=== PATIENT | female | born 1970 | race Caucasian/White ===

== ENCOUNTER 2021-06-24 16:22 | Emergency (ER) | payer OTHER, SELFPAY ==
[2021-06-24 16:47] VITALS: BP 118/80; PULSE 86; RESP 16; TEMP 36.9; O2SAT 100; BMI 36.3
--- NOTE | 2021-06-24 17:05 | ED_ITS ---
HPI - Eye Problem <Zo Sosa MD - Last Filed: 06/24/21 18:26> General Chief complaint: Eye Problems Stated complaint: blurry right eye Time Seen by Provider: 06/24/21 17:05 History of Present Illness HPI Narrative: Otherwise healthy 51-year-old woman presents with complaints of acute right-sided visual acuity change at about 145 this afternoon. She notes significant decrease in vision and describes it as freckally and blurred. It is painless and not associated with headache. Visual acuity is decreased on the affected side: Right 20/70, left 20/25 [id number] Review of Systems <Zo Sosa MD - Last Filed: 06/24/21 18:26> Review of Systems Narrative: Pertinent positive and negative findings as per HPI Remainder of review of systems is otherwise unremarkable for Constitutional: Fevers, chills, weakness ENT: No sore throat, neck pain, ear pain CV: Chest pain, palpitations, Respiratory: Cough, wheeze, dyspnea GI: Nausea, vomiting, diarrhea, Exam <Zo Sosa MD - Last Filed: 06/24/21 18:26> Narrative Exam Narrative: General: Alert appropriate in no acute distress HEENT: Extra ocular eye movement intact. No scleral injection no corneal clouding no eyelid irritation. Funduscopic exam is attempted. Unable to focus on the fundus on either side. Left does appear appropriately pink, however right side funduscopic exam is significantly darker. Unable to focus on the retina on the side either Respiratory: Able to speak in full sentences, no obvious respiratory distress Skin: No obvious rashes, warm and dry Neurologic: Grossly intact no obvious asymmetries or abnormalities Psych: appropriate insight and affect, cooperative Initial Vital Signs Initial Vital Signs: Vital Signs Temperature 98.4 F 06/24/21 16:47 Pulse Rate 86 06/24/21 16:47 Respiratory Rate 16 06/24/21 16:47 Blood Pressure 118/80 06/24/21 16:47 Pulse Oximetry 100 06/24/21 16:47 <Chaparro Silva MD - Last Filed: 06/29/21 09:10> Initial Vital Signs Initial Vital Signs: Vital Signs Temperature 98.4 F 06/24/21 16:47 Pulse Rate 86 06/24/21 16:47 Respiratory Rate 16 09/08/21 16:47 Blood Pressure 118/80 09/08/21 16:47 Pulse Oximetry 100 06/24/21 16:47 Course <Zo Sosa MD - Last Filed: 06/24/21 18:26> Vital Signs Vital signs: Vital Signs - 8 hr 06/24/21 18:30 Pulse Rate 75 Blood Pressure 141/89 H Pulse Oximetry 100 <Chaparro Silva MD - Last Filed: 06/29/21 09:10> Vital Signs Vital signs: Vital Signs - 8 hr 06/24/21 18:30 Pulse Rate 75 Blood Pressure 141/89 H Pulse Oximetry 100 MDM - Eye Problem <Zo Sosa MD - Last Filed: 06/24/21 18:26> MDM Narrative Medical decision making narrative: 51-year-old woman with acute decreased vision with decreased blood flow to the right redness starting at 1:45 a.m. this afternoon. This does not appear to be a central artery occlusion nor amaurosis fugax. It does not appear to be infection related or corneal or anterior chamber abnormality. She is having no other symptoms or concern and no headache. Concern at this time is for central retinal vein occlusion with non severe visual loss ( 20/70) 5:20pm Page to ophthalmology for consultation Discharge Plan Departure Patient Disposition: Home Clinical Impression: Retinal vein occlusion Qualifiers: Central or branch retinal vein: central Retinal vein occlusion complication status: unspecified complication status Laterality: right Qualified Code(s): H34.8112 - Central retinal vein occlusion, right eye, stable Activity Restrictions/Additional Instructions: Based on your history and exam today, I believe you have a retinal vein occlusion. Most up to date recommendations for this are: Central retinal vein occlusion ? Patients with central retinal vein occlusion (CRVO) usually complain of the acute onset of painless blurred vision in one eye. The thrombosis results in venous stasis, leading to disc swelling, diffuse nerve fiber layer/preretinal hemorrhages, and cotton wool spots that create a dramatic appearance on funduscopic examination, often called the blood and thunder fundus. While vision loss may be severe, the onset is typically subacute in contrast to the sudden visual loss typical of CRAO. When venous stasis is severe, infarction may occur due to slowed retinal blood flow on the arterial side. In this setting, a relative afferent pupillary defect is often present. Patients suspected of having CRVO should be evaluated by an vegetable specker within 48 hours. We do not currently have an opthamologist environmental attorney. Please call your eye doctor, you can even call this evening to leave a message that you were in the ER and need to be seen tomorrow. I wish you the best
[2021-06-24 18:30] VITALS: BP 141/89; PULSE 75; O2SAT 100
== END 2021-06-24 18:31 | disposition home or self-care (01) ==
PROVIDERS: Emergency Provider Emergency Medicine
DX: H34.8112 Central retinal vein occlusion, right eye, stable (principal)
CPT/HCPCS: 99281

== ENCOUNTER 2022-02-14 12:08 | Emergency (ER) | payer OTHER, MEDICAID, SELFPAY ==
[2022-02-14 12:24] VITALS: BP 119/62; PULSE 80; RESP 18; TEMP 37.1; O2SAT 98
--- NOTE | 2022-02-14 12:26 | DI.RAD.S_ITS ---
PROCEDURE: XR LUMBAR SPINE 2-3V INDICATIONS: fall, direct blow TECHNIQUE: 3 views of the lumbar spine were acquired. COMPARISON: None. FINDINGS: Bones: 5 [id number] vertebrae are present. There is roughly 10 mm of retrolisthesis L2 on L3, and roughly 10 mm of retrolisthesis of L3 on L4. Multilevel disc space narrowing and endplate osteophyte formation. Facet hypertrophy throughout the mid and lower lumbar spine.. No vertebral body compression fractures. No suspicious bony lesions. Soft tissues: Overlying bowel gas pattern is normal. No suspicious soft tissue calcifications. IMPRESSION: 1. Multilevel degenerative disc and facet disease with associated spondylolisthesis. 2. No acute fracture. No osseous lesion. If symptoms and/or clinical suspicion for pathology persist, further assessment with repeat, or advanced imaging (e.g., CT, MRI, or bone scan) may be helpful for further assessment. Dictated by: Brittney Augustine M.D. on 02/14/2022 at 13:07 Approved by: Brittney Augustine M.D. on 02/14/2022 at 13:09
--- NOTE | 2022-02-14 13:50 | DI.RAD.S_ITS ---
PROCEDURE: XR PELVIS 1-2V INDICATIONS: fall on rt side, large hematoma TECHNIQUE: 1 view(s) of the pelvis acquired. COMPARISON: None. FINDINGS: Bones: No fractures or dislocations. No suspicious bony lesions. Soft tissues: Visualized bowel gas pattern is normal. No suspicious soft tissue calcifications. IMPRESSION: No acute fracture. No osseous lesion. If symptoms and/or clinical suspicion for pathology persist, further assessment with repeat, or advanced imaging (e.g., CT, MRI, or bone scan) may be helpful for further assessment. Dictated by: Brittney Augustine M.D. on 02/14/2022 at 14:17 Approved by: Brittney Augustine M.D. on 02/14/2022 at 14:17
[2022-02-14] MEDS: LIDOCAINE PATCH 1 EACH ADH..PATCH TOP (14:09)
[2022-02-14] MEDS: KETOROLAC 30 MG/ML VIAL 15 MG IM (14:09)
[2022-02-14 14:30] LABS: Hematocrit 36.1 % (36-46); Hemoglobin 12.4 g/dL (12.0-16.0)
--- NOTE | 2022-02-14 14:33 | ED_ITS ---
HPI - Back Pain/Injury <JANEE Kirkland - Last Filed: 02/14/22 14:42> General Chief Complaint: Back Pain/Injury Stated Complaint: fell down stairs lower back right leg Time Seen by Provider: 02/14/22 13:40 Source: patient History of Present Illness HPI Narrative: This is a 51-year-old female presents to the emergency department after she accidentally stepped on her cat while going down the stairs last night and fell down on her right hip down the stairs. She denies hitting her head, states she has a very large hematoma and bruise to her right buttock, states it is approximately 10 in x 8 in, very tender, initially it was swollen like a baseball and then has dissipated since. She denies being on any anticoagulants, she denies any lightheadedness, dizziness, weakness, orthostatic hypotension. She denies any other complaint other than low back pain from falling down. She denies any weakness, sensation changes in her lower extremities, headache, or open wound. She states she has full range of motion of her leg although walking is painful and standing from sitting is the most painful. Related Data Previous Rx's Medication Instructions Recorded diclofenac sodium 1 % topical gel 2 g TOPICAL QID PRN #100 g 02/14/22 (Voltaren Arthritis Pain) hydrocodone 5 mg-acetaminophen 325 1 tab PO BID PRN #14 tab 02/14/22 mg tablet lidocaine 5 % topical patch 1 patch TOPICAL DAILY PRN #15 ea 02/14/22 (Lidoderm) methocarbamol 500 mg tablet 500 mg PO Q8H PRN #14 tab 02/14/22 naproxen 250 mg tablet 250 mg PO BID PRN #30 tab 02/14/22 Allergies Allergy/AdvReac Type Severity Reaction Status Date / Time No Known Drug Allergies Allergy Unverified 12/29/21 13:14 Review of Systems <JANEE Kirkland - Last Filed: 02/14/22 14:42> Review of Systems Narrative: General: denies fever, chills Head/Neck: denies headache, neck pain Eyes: denies visual changes, eye pain Cardio: denies chest pain, palpitations Respiratory: denies shortness of breath, cough GI: denies abdominal pain, nausea, vomiting, or diarrhea : denies dysuria, hematuria MSK: denies joint pain, muscle weakness, endorses large hematoma on right buttock, denies any pain, or pain in right hip with movement. Denies any sensation changes Skin: denies rash, itching Neuro: denies numbness, tingling Patient History <JANEE Kirkland - Last Filed: 02/14/22 14:42> Social History Smoking Status: Never smoker Smoking Status: Never smoker Substance Use Type: does not use Exam <JANEE Kirkland - Last Filed: 02/14/22 14:42> Narrative Exam Narrative: Independently reviewed vitals signs and nursing notes. General: cooperative, comfortable, in no acute distress, well developed and well groomed Head: atraumatic, symmetrical facial expressions Neck: supple, atraumatic, without lymphadenopathy. Eyes: pupils equal round and reactive, EOMI, conjunctiva normal Nose: nares patent, no rhinorrhea Mouth/Throat: uvula midline, moist mucus membranes Cardiovascular: regular rate and rhythm, no peripheral edema, warm extremities Respiratory: normal effort, able to speak in complete sentences, no audible wheezing, stridor, or rales. No retractions or tachypnea. GI: abdomen soft, nontender to palpation, nondistended, no masses, no exquisite tenderness with exam, without guarding or rebound. MSK: moves all extremities, ambulatory w/limp on right leg due to pain from her right buttock hematoma, right leg is neurovascularly intact, no weakness, no open wound, large hematoma approximately 10 in by 8 in on her right buttock, slightly edematous, firm, purple in color, tender to palpation. Skin: brisk capillary refill, no rash, no erythema Neuro: normal speech and cognition, A&O x3, normal tone Psych: mental status is grossly normal, congruent mood, normal affect, pleasant and cooperative Initial Vital Signs Initial Vital Signs: Vital Signs Temperature 98.7 F 02/14/22 12:24 Pulse Rate 80 02/14/22 12:24 Respiratory Rate 18 02/14/22 12:24 Blood Pressure 119/62 02/14/22 12:24 Pulse Oximetry 98 02/14/22 12:24 <Eugenio Forte DO - Last Filed: 02/14/22 15:45> Initial Vital Signs Initial Vital Signs: Vital Signs Temperature 98.7 F 02/14/22 12:24 Pulse Rate 80 02/14/22 12:24 Respiratory Rate 18 02/14/22 12:24 Blood Pressure 119/62 02/14/22 12:24 Pulse Oximetry 98 02/14/22 12:24 Course <JANEE Kirkland - Last Filed: 02/14/22 14:42> Orders Ordered: ED Orders 02/14/22 12:26 XR lumbar spine 2-3V Stat 02/14/22 13:50 XR pelvis 1-2V Stat 02/14/22 14:19 Hemoglobin and Hematocrit Stat Discontinued Medications Ketorolac Tromethamine (Ketorolac 30 Mg/Ml Vial) 15 mg IM NOW ONE Stop: 02/14/22 13:51 Last Admin: 02/14/22 14:09 Dose: 15 mg Documented by: YUDI Lidocaine (Lidocaine Patch 1 Each Adh..Patch) 1 each TOP NOW ONE Stop: 02/14/22 13:51 Last Admin: 02/14/22 14:09 Dose: 1 each Documented by: YUDI Vital Signs Vital signs: Vital Signs - 8 hr 02/14/22 12:24 02/14/22 14:46 Temperature 98.7 F Pulse Rate 80 67 Respiratory Rate 18 18 Blood Pressure 119/62 120/72 Pulse Oximetry 98 97 <Eugenio Forte DO - Last Filed: 02/14/22 15:45> Orders Ordered: ED Orders 02/14/22 12:26 XR lumbar spine 2-3V Stat 02/14/22 13:50 XR pelvis 1-2V Stat 02/14/22 14:19 Hemoglobin and Hematocrit Stat Discontinued Medications Ketorolac Tromethamine (Ketorolac 30 Mg/Ml Vial) 15 mg IM NOW ONE Stop: 02/14/22 13:51 Last Admin: 02/14/22 14:09 Dose: 15 mg Documented by: YUDI Lidocaine (Lidocaine Patch 1 Each Adh..Patch) 1 each TOP NOW ONE Stop: 02/14/22 13:51 Last Admin: 02/14/22 14:09 Dose: 1 each Documented by: YUDI Vital Signs Vital signs: Vital Signs - 8 hr 02/14/22 12:24 02/14/22 14:46 Temperature 98.7 F Pulse Rate 80 67 Respiratory Rate 18 18 Blood Pressure 119/62 120/72 Pulse Oximetry 98 97 MDM - Back Pain/Injury <Shanika Maurer Virydamaso, [facility] - Last Filed: 02/14/22 14:42> Lab Data Result diagrams: 02/14/22 14:19 Labs: Lab Results 02/14/22 Range/Units 14:19 Hgb 12.4 (12.0-16.0) g/dL Hct 36.1 (36-46) % Imaging Data pelvis xr: Radiologist's Impression: PROCEDURE:? XR PELVIS 1-2V ? INDICATIONS:? fall on rt side, large hematoma ? TECHNIQUE:? 1 view(s) of the pelvis acquired.? ? COMPARISON:? None. ? FINDINGS:? ? Bones:? No fractures or dislocations.? No suspicious bony lesions.? ? Soft tissues:? Visualized bowel gas pattern is normal.? No suspicious soft tissue calcifications.? ? IMPRESSION:? No acute fracture. No osseous lesion. If symptoms and/or clinical suspicion for pathology persist, further assessment with repeat, or advanced imaging (e.g., CT, MRI, or bone scan) may be helpful for further assessment. ? ? Dictated by: Brittney Augustine M.D. on 02/14/2022 at 14:17 ? ? Approved by: Brittney Augustine M.D. on 02/14/2022 at 14:17 ? lumbar xr: Radiologist's Impression: PROCEDURE:? XR LUMBAR SPINE 2-3V ? INDICATIONS:? fall, direct blow ? TECHNIQUE:? 3 views of the lumbar spine were acquired.? ? COMPARISON:? None. ? FINDINGS:? ? Bones:? 5 [id number] vertebrae are present.? There is roughly 10 mm of retrolisthesis L2 on L3, and roughly 10 mm of retrolisthesis of L3 on L4.? Multilevel disc space narrowing and endplate osteophyte formation.? Facet hypertrophy throughout the mid and lower lumbar spine..? No vertebral body compression fractures.? No suspicious bony lesions.? ? Soft tissues:? Overlying bowel gas pattern is normal.? No suspicious soft tissue calcifications.? ? ? IMPRESSION:? 1. Multilevel degenerative disc and facet disease with associated spondylolisthesis. 2. No acute fracture. No osseous lesion. If symptoms and/or clinical suspicion for pathology persist, further assessment with repeat, or advanced imaging (e.g., CT, MRI, or bone scan) may be helpful for further assessment. ? ? Dictated by: Brittney Augustine M.D. on 02/14/2022 at 13:07 ? ? Approved by: Brittney Augustine M.D. on 02/14/2022 at 13:09 ? MDM Narrative Medical decision making narrative: This is a 51-year-old female presents emergency department after a fall down the stairs last night after she stepped on her cat, she has pain to her right buttock and low back pain. She has a large hematoma approximately 10 in x 8 on her right buttock. Pelvis x-ray is negative for acute fracture or osseous lesion, no suspicious soft tissue was notable, lumbar x-ray shows multilevel degenerative disc and facet disease with associated spondylolisthesis, no acute fracture or osseous lesion, no vertebral body compression fractures. H&H was drawn to evaluate for blood loss 36.1. Patient denies any lightheadedness, dizziness, orthostatic hypotension, weakness, head injury, or any other wound. She is encouraged to follow-up with her primary care provider for any outpatient imaging and to see how this is healing. Concern for large hematoma and if this does not absorb in need for potential surgical debridement. Encouraged ice and heat, rest, light activity and movement, lidocaine patches, Voltaren gel, she is given hydrocodone as needed for pain, she is given Toradol in the emergency department today, encouraged to use naproxen starting tomorrow, methocarbamol, lidocaine patches, Voltaren gel and Lortab as needed for pain. Patient is appropriate and amenable to discharge home. Vital signs are stable on repeat examination is unremarkable. Patient has been informed of results. Patient has been given strict return to ER precautions for any new or worsening symptoms. Patient understands to follow up closely with outpatient providers as ins tructed. Patient understands plan and agrees to discharge home. All questions and concerns answered at this time. <Eugenio Forte, DO - Last Filed: 02/14/22 15:45> Lab Data Labs: Lab Results 02/14/22 Range/Units 14:19 Hgb 12.4 (12.0-16.0) g/dL Hct 36.1 (36-46) % Discharge Plan Departure Patient Disposition: Home Clinical Impression: Hematoma and contusion Fall Qualifiers: Encounter type: initial encounter Qualified Code(s): W19.XXXA - Unspecified fall, initial encounter Instructions: Contusion, DI for Hematoma (Bruise) Activity Restrictions/Additional Instructions: *You have been diagnosed with a very large hematoma/contusion. Please take the next few days off of work to help yourself rest. Alternate ice and heat, use topical lidocaine patches or Voltaren gel, naproxen every 12 hours starting tomorrow, Tylenol, and hydrocodone as needed for pain. You may take a muscle relaxer if you are having spasms. Please follow-up with your primary care provider for another evaluation of this wound. If you are feeling faint, lightheaded, worsening pain worsening swelling, please return to the emergency department for another evaluation. There are no life-threatening causes to your injury that we found on x-ray or your lab work today. Light activity will help this improve and very light massage. This will be painful for quite a few days, it may take 2-4 weeks to fully heal. Thank you for trusting us with your care, if you have any worsening of her symptoms, spike a fever, or any other concerns, please return to the emergency department. *What to do: *Please continue to take your regular medications as directed. [ x] New medication prescriptions sent to your pharmacy: [ [facility]] [ ] New medication written as a paper prescription [ ] No new medications given *Please follow up with your primary care provider in 2-3 days, call for an appointment. Let them know you were seen in the Emergency Department and that we asked that you be seen for follow-up. We will electronically transmit a record of today's note if your PCP is in our system *If you do not have a primary care provider please contact [phone] to establish care with one of the [facility] primary care providers. *Return to Emergency Department if you should have any new, worsening or concerning symptoms, such as [fever greater than 101F, chills, worsening pain, persistent vomiting or other bothersome symptoms] Prescriptions: New hydrocodone-acetaminophen 5-325 mg tablet 1 tab PO BID PRN (Reason: pain) Qty: 14 0RF methocarbamol 500 mg tablet 500 mg PO Q8H PRN (Reason: muscle spasm) Qty: 14 0RF lidocaine [Lidoderm] 5 % adhesive patch,medicated 1 patch topical DAILY PRN (Reason: pain) Qty: 15 0RF Rx Instructions: leave on most painful area for up to 12 hrs naproxen 250 mg tablet 250 mg PO BID PRN (Reason: pain) Qty: 30 0RF Rx Instructions: with food and water diclofenac sodium [Voltaren Arthritis Pain] 1 % gel 2 g topical QID PRN (Reason: pain/swelling) Qty: 100 0RF Rx Instructions: apply to single elbow, wrist or hand; for hand includes palm/fingers/back of hand Referrals: Izzy Jansen ND [Primary Care Provider] - Stand Alone Forms: Work Release Note <Eugenio Forte DO - Last Filed: 02/14/22 15:45> Cosign ED Attending Cosignature Attestation: Dr Forte Co-Sign Statement: I was available for consultation during this patient's emergency department visit. This chart is signed by myself for administrative purposes only. I did not have direct contact with this patient during this visit. They were seen independently by the APC.
[2022-02-14 14:46] VITALS: BP 120/72; PULSE 67; RESP 18; O2SAT 97
== END 2022-02-14 14:46 | disposition home or self-care (01) ==
PROVIDERS: Emergency Provider Nurse Practitioner Critical Care Medicine; PCP Naturopath
DX: S30.0XXA Contusion of lower back and pelvis, initial encounter (principal); W10.9XXA Fall (on) (from) unspecified stairs and steps, initial encounter
CPT/HCPCS: 36415; 72100; 72170; 85014; 85018; 96372; 99283; 99284; J1885

== ENCOUNTER → 2022-08-16 11:54 | Outpatient (CLI) | payer OTHER, MEDICAID, SELFPAY ==
--- NOTE | 2022-08-16 | DI.RAD.S_ITS ---
PROCEDURE: FL SHOULDER INJECTION MR/CT LT INDICATIONS: Pain in left shoulder COMPARISON: None. TECHNIQUE: The indications, alternatives, benefits, risks, and complications of the procedure were explained to the patient. Written informed consent was obtained and placed in the chart. The shoulder was examined fluoroscopically and a site for needle placement chosen for entry into the glenohumeral joint from an anterior approach. The skin was prepped and draped in a sterile fashion, and 1% lidocaine infiltrated from skin down to joint capsule. A spinal needle was inserted into the glenohumeral joint, and a small amount of iodinated contrast media injected to confirm intra-articular placement of the needle tip. This was followed by approximately 12 mL dilute solution of a gadolinium containing MR contrast agent. The needle was removed and a dressing was applied. The patient was given postprocedural instructions and sent to the MR suite for MR imaging. FINDINGS: A single fluoroscopic spot image demonstrates intra-articular location of injected iodinated contrast. IMPRESSION: Successful fluoroscopically guided administration of dilute Gadolinium solution into the shoulder joint for MR arthrogram. Dictated by: Morris Ayoub M.D. on 08/16/2022 at 14:26 Approved by: Morris Ayoub M.D. on 08/16/2022 at 14:26
--- NOTE | 2022-08-16 | DI.MRI.S_ITS ---
PROCEDURE: MR SHOULDER LT W CON INDICATIONS: Pain in left shoulder TECHNIQUE: After the administration of 12 mL of dilute intra-articular Gadolinium contrast, oblique coronal T1 and T2 spin echo with fat saturation, oblique sagittal T1 spin echo with and without fat saturation, oblique sagittal T2 fast spin echo with fat saturation, axial T1 spin echo with fat saturation through the shoulder. COMPARISON: None. FINDINGS: Image quality: Slightly motion degraded Rotator cuff: No significant atrophy Teres minor: Intact Supraspinatus: Interstitial partial thickness tear and tendinosis of the mid and proximal tendon. Infraspinatus: Tendinosis and partial-thickness articular sided tear. Subscapularis: Tendinosis. Bones and bursae: GH joint: Distended with contrast. The cartilage is difficult to identify in the presence of contrast. There is probably mild degenerative changes. Some small loose bodies are seen adjacent to the long head biceps tendon, as well as the posterior aspect of the axillary pouch. AC joint: Mild degenerative changes Humeral head: Intact Scapula and acromion: Normal morphology Bursa: There is mild bursitis. No extension of intra-articular contrast. Capsule: Labrum: There is a superior labral tear, also involving the anterior superior position Long head biceps tendon: The mid tendon is situated in the bicipital groove. Nearly completely torn biceps tendon in the intra-articular aspect, with a split tear near the glenoid aspect. IGHL: Intact Rotator interval: Preserved fat signal Soft tissues: No axillary adenopathy. Lungs are not well seen. IMPRESSION: Superior labral tear also involving the anterior superior aspect. Split tear the long head biceps tendon at the glenoid attachment. High-grade tear of the intra-articular long head biceps tendon. Small loose bodies are seen in the joint, adjacent to the long head biceps tendon and at the posterior aspect of the axillary pouch Partial-thickness rotator cuff tearing and tendinosis as above. Dictated by: Morris Ayoub M.D. on 08/16/2022 at 15:57 Approved by: Morris Ayoub M.D. on 08/16/2022 at 16:09
== END ==
PROVIDERS: PCP Naturopath; Referring Provider Naturopath; Visit Provider Naturopath
DX: M75.112 Incomplete rotator cuff tear or rupture of left shoulder, not specified as traumatic (principal); S43.492A Other sprain of left shoulder joint, initial encounter; S46.112A Strain of muscle, fascia and tendon of long head of biceps, left arm, initial encounter; M25.512 Pain in left shoulder
CPT/HCPCS: 23350; 73222

== ENCOUNTER 2022-10-13 14:11 | Emergency (ER) | payer OTHER, MEDICAID, SELFPAY ==
[2022-10-13 14:16] VITALS: BP 136/82; PULSE 73; RESP 20; TEMP 36.6; O2SAT 100; BMI 37.0
[2022-10-13 15:11] LABS: Influenza A - CEPHEID Flu A NEGATIVE (NEGATIVE); Influenza B - CEPHEID Flu B NEGATIVE (NEGATIVE); Respiratory Syncytial Virus Negative (Negative)
[2022-10-13 15:14] LABS: COVID-19 CEPHEID 4-PLEX PCR Negative (Negative)
--- NOTE | 2022-10-13 17:08 | ED.URI ---
HPI - URI/Sore Throat <JANEE Kirkland - Last Filed: 10/13/22 17:18> General Chief Complaint: Upper Respiratory Symptoms Stated Complaint: Cold for 10 days Time Seen by Provider: 10/13/22 16:50 Source: patient Mode of arrival: Ambulatory History of Present Illness HPI Narrative: This is a 52-year-old female with history of asthma presents to the emergency department with 10 days of cough, congestion, rhinorrhea and states that her cough is keeping her up late at night. She denies fever and chills, denies vomiting but states that she is had frequent coughing fits. She uses albuterol nebulizers in her nebulizer machine for her shortness of breath and states that it has been helpful but she is up late at night due to coughing. She is taking Sudafed with Mucinex, complains of history of asthma and COPD, having a raspy voice, and frequent coughing fits. She denies chest pain, difficulty breathing or weakness. Denies chest pain, nausea vomiting. Related Data Previous Rx's Medication Instructions Recorded diclofenac sodium 1 % topical gel 2 g topical QID PRN pain/swelling 02/14/22 (Voltaren Arthritis Pain) #100 grams lidocaine 5 % topical patch 1 patch topical DAILY PRN pain #15 02/14/22 (Lidoderm) ea methocarbamol 500 mg tablet 500 mg PO Q8H PRN muscle spasm #14 02/14/22 tabs naproxen 250 mg tablet 250 mg PO BID PRN pain #30 tabs 02/14/22 albuterol sulfate 2.5 mg/3 mL 2.5 mg (3 mL) inhalation Q3H PRN 10/13/22 (0.083 %) solution for nebulization shortness of breath or wheezing #90 mL benzonatate 200 mg capsule 200 mg PO TID PRN cough #14 caps 10/13/22 inhalational spacing device (Space #1 ea 10/13/22 Chamber) methylprednisolone 4 mg tablets in See Rx Instructions PO .COMPLEX 10/13/22 a dose pack (Medrol (Miguel)) #21 ea Allergies Allergy/AdvReac Type Severity Reaction Status Date / Time No Known Drug Allergies Allergy Unverified 07/29/22 10:52 Review of Systems <JANEE Kirkland - Last Filed: 10/13/22 17:18> Review of Systems ROS Unobtainable: All systems reviewed & are unremarkable except as noted in HPI and below Patient History <JANEE Kirkland - Last Filed: 10/13/22 17:18> Social History Smoking Status: Never smoker Smoking Status: Never smoker alcohol intake frequency: holidays/special occasions only Substance Use Type: does not use Exam <JANEE Kirkland - Last Filed: 10/13/22 17:18> Narrative Exam Narrative: Reviewed vitals signs and nursing notes. General: cooperative, comfortable, in no acute distress, well groomed HEENT: symmetrical facial expressions, moist mucous membranes Cardiovascular: regular rate and rhythm, no peripheral edema, warm extremities Respiratory: normal effort, frequent cough, mild expiratory wheezes, breath sounds auscultated in all lobes without diminished breath sounds, able to speak in complete sentences, without stridor, retractions or tachypnea. Without hypoxia or increased work of breathing Skin: brisk capillary refill, without pallor or erythema Neuro: normal speech and cognition, A&O x3, ambulatory, clear speech Psych: mental status is grossly normal, congruent mood, normal affect, pleasant and cooperative Initial Vital Signs Initial Vital Signs: Vital Signs Temperature 97.9 F 10/13/22 14:16 Pulse Rate 73 10/13/22 14:16 Respiratory Rate 20 10/13/22 14:16 Blood Pressure 136/82 10/13/22 14:16 Pulse Oximetry 100 10/13/22 14:16 Oxygen Delivery Method 10/13/22 14:16 <Carlotta Howell DO - Last Filed: 10/16/22 07:52> Initial Vital Signs Initial Vital Signs: Vital Signs Temperature 97.9 F 10/13/22 14:16 Pulse Rate 73 10/13/22 14:16 Respiratory Rate 20 10/13/22 14:16 Blood Pressure 136/82 10/13/22 14:16 Pulse Oximetry 100 10/13/22 14:16 Oxygen Delivery Method 10/13/22 14:16 Course <JANEE Kirkland - Last Filed: 10/13/22 17:18> Orders Ordered: Discontinued Medications Benzonatate (Benzonatate 100 Mg Capsule) 100 mg PO NOW ONE Stop: 10/13/22 17:03 Last Admin: 10/13/22 18:06 Dose: 100 mg Documented By: JUDY Dexamethasone (Dexamethasone 10 Mg/Ml Vial) 10 mg PO NOW ONE Stop: 10/13/22 17:03 Last Admin: 10/13/22 18:06 Dose: 10 mg Documented By: JUDY Vital Signs Vital signs: Vital Signs - 8 hr 10/13/22 14:16 Temperature 97.9 F Pulse Rate 73 Respiratory Rate 20 Blood Pressure 136/82 Pulse Oximetry 100 Oxygen Delivery Method Room Air <Carlotta Howell DO - Last Filed: 10/16/22 07:52> Orders Ordered: Discontinued Medications Benzonatate (Benzonatate 100 Mg Capsule) 100 mg PO NOW ONE Stop: 10/13/22 17:03 Last Admin: 10/13/22 18:06 Dose: 100 mg Documented By: JUDY Dexamethasone (Dexamethasone 10 Mg/Ml Vial) 10 mg PO NOW ONE Stop: 10/13/22 17:03 Last Admin: 10/13/22 18:06 Dose: 10 mg Documented By: JUDY Vital Signs Vital signs: Vital Signs - 8 hr 10/13/22 14:16 Temperature 97.9 F Pulse Rate 73 Respiratory Rate 20 Blood Pressure 136/82 Pulse Oximetry 100 Oxygen Delivery Method Room Air MDM - URI/Sore Throat <JANEE iKrkland - Last Filed: 10/13/22 17:18> Lab Data Labs: Lab Results 10/13/22 Range/Units 14:20 SARS-CoV-2 (PCR) Negative (Negative) Influenza A (RT-PCR) Flu a negative (NEGATIVE) Influenza B (RT-PCR) Flu b negative (NEGATIVE) RSV (PCR) Negative (Negative) MDM Narrative Medical decision making narrative: This patient presents with symptoms suspicious for likely viral upper respiratory infection for the last 10 days with frequent cough, productive cough, denies fever and chills.. Based on history and physical, doubt sinusitis, pneumonia, bacterial tracheitis, or systemic infection.. Respiratory PCR: Negative for COVID, influenza a, B, and RSV. Patient has history of COPD, asthma, uses albuterol nebulizer at home, today she was given Decadron in the emergency department for mild expiratory wheezes on auscultation. She was given Medrol Dosepak, refill of albuterol neb goals, benzonatate for cough. Recommend she follow-up with her PCP or return to emergency department for worsening symptoms and if she develops a fever. She is without hypoxia, increased work of breathing, or abnormal vital signs today. Do not suspect underlying cardiopulmonary process. I considered other dangerous causes of this patient?s symptoms to include ACS, CHF or exacerbation, pneumonia, pneumothorax, malignancy and determined these were unlikely. Patient is nontoxic appearing and not in need of emergent medical intervention. Patient told to self isolate at home until symptoms subside/improve. Other possible diagnosis' considered: viral URI, influenza, COVID, pharyngitis, GERD, bronchitis, asthma, pertussis, medication side effect, postnasal discharge, sinusitis, appendicitis, dehydration. Recommended rest, hydration, tylenol and NSAIDS for fever and/or pain. Return to ED for worsening symptoms such as SOB, chest pain, inability to take adequate oral fluids, fever, or productive cough. <Carlotta Howell DO - Last Filed: 10/16/22 07:52> Lab Data Labs: Lab Results 10/13/22 Range/Units 14:20 SARS-CoV-2 (PCR) Negative (Negative) Influenza A (RT-PCR) Flu a negative (NEGATIVE) Influenza B (RT-PCR) Flu b negative (NEGATIVE) RSV (PCR) Negative (Negative) Discharge Plan Departure Patient Disposition: Home Clinical Impression: Upper respiratory infection Qualifiers: URI type: unspecified URI Qualified Code(s): J06.9 - Acute upper respiratory infection, unspecified Instructions: Acute Bronchitis, DI for Viral Upper Respiratory Infection -- Adult Activity Restrictions/Additional Instructions: *You have been diagnosed with an upper respiratory infection which did not test positive for COVID, influenza, or RSV. It can be many other different viruses and the viral part maybe over already but you have symptoms of bronchitis today. Please continue using the Sudafed with mucus coverage, use your albuterol nebulizers as needed for shortness of breath, and take the steroid as prescribed. You may take Zyrtec or Mucinex as needed for right runny nose and congestion. I hope you feel better soon, rest, stay hydrated, follow up with your primary care provider and return for any new or worsening symptoms, or if you develop a fever. *What to do: *Please continue to take your regular medications as directed. [x ] New medication prescriptions sent to your pharmacy: [[facility] ] [ ] New medication written as a paper prescription [ ] No new medications given *Please follow up with your primary care provider in 2-3 days, call for an appointment. Let them know you were seen in the Emergency Department and that we asked that you be seen for follow-up. We will electronically transmit a record of today's note if your PCP is in our system *If you do not have a primary care provider please contact [phone] to establish care with one of the [facility] primary care providers. *Return to Emergency Department if you should have any new, worsening, or concerning symptoms, such as [fever greater than 101F, chills, worsening pain, persistent vomiting or other bothersome symptoms]. Prescriptions: New benzonatate 200 mg capsule 200 mg PO TID PRN (Reason: cough) Qty: 14 0RF methylprednisolone [Medrol (Miguel)] 4 mg tablets,dose pack See Rx Instructions .ROUTE .COMPLEX Qty: 21 0RF Rx Instructions: orally per package directions albuterol sulfate 2.5 mg /3 mL (0.083 %) solution for nebulization 2.5 mg inhalation Q3H PRN (Reason: shortness of breath or wheezing) Qty: 90 0RF (DME) Space Chamber Spacer See Rx Instructions .Route Qty: 1 0RF Rx Instructions: As directed No Action methocarbamol 500 mg tablet 500 mg PO Q8H PRN (Reason: muscle spasm) Qty: 14 0RF lidocaine [Lidoderm] 5 % adhesive patch,medicated 1 patch topical DAILY PRN (Reason: pain) Qty: 15 0RF Rx Instructions: leave on most painful area for up to 12 hrs naproxen 250 mg tablet 250 mg PO BID PRN (Reason: pain) Qty: 30 0RF Rx Instructions: with food and water diclofenac sodium [Voltaren Arthritis Pain] 1 % gel 2 g topical QID PRN (Reason: pain/swelling) Qty: 100 0RF Rx Instructions: apply to single elbow, wrist or hand; for hand includes palm/fingers/back of hand Referrals: Izzy Jansen ND [Primary Care Provider] - Stand Alone Forms: Patient Portal/API <Carlotta Howell DO - Last Filed: 10/16/22 07:52> Cosign ED Attending Cosignature Attestation: I was immediately available in the department for consultation. Documentation has been reviewed. I agree with assessment and plan.
[2022-10-13] MEDS: BENZONATATE 100 MG CAPSULE PO (18:06)
[2022-10-13] MEDS: DEXAMETHASONE 10 MG/ML VIAL PO (18:06)
[2022-10-13 18:18] VITALS: BP 127/84; PULSE 65; O2SAT 100
== END 2022-10-13 18:27 | disposition home or self-care (01) ==
PROVIDERS: Emergency Medicine; Emergency Provider Nurse Practitioner Critical Care Medicine; PCP Naturopath
DX: J06.9 Acute upper respiratory infection, unspecified (principal); Z20.822 Contact with and (suspected) exposure to COVID-19
CPT/HCPCS: 0241U; 99283; J1100

== ENCOUNTER 2022-10-31 07:35 | Emergency (ER) | payer OTHER, MEDICAID, SELFPAY ==
--- NOTE | 2022-10-31 07:43 | ED.GENADULT ---
HPI - General Adult General Chief complaint: Upper Respiratory Symptoms Stated complaint: chills, sore throat, headache x1 mo Time Seen by Provider: 10/31/22 07:40 History of Present Illness HPI narrative: 52F nonsmoker without chronic medical history presents with a chief complaint various upper respiratory symptoms for about the past 1-2 months. She is had a vague headache in the absence of trauma, neck pain, use of blood thinners. She has no obvious provocation or palliation of her head pain. She is had nasal congestion, runny nose and sore throat. Additionally she complains of a dry and hacking cough that occasionally produces yellowish sputum. She states her symptoms seem to be worse in the evening and throughout the night and improve over the course of the day. She denies nausea, vomiting or diarrhea. She had been taking various [id number] cough and cold medications and recently saw her primary care provider who put her on a Z-Miguel. She has no notable improvement. She denies any shortness of breath, recent travel or injury Related Data Previous Rx's Medication Instructions Recorded diclofenac sodium 1 % topical gel 2 g topical QID PRN pain/swelling 02/14/22 (Voltaren Arthritis Pain) #100 grams lidocaine 5 % topical patch 1 patch topical DAILY PRN pain #15 02/14/22 (Lidoderm) ea methocarbamol 500 mg tablet 500 mg PO Q8H PRN muscle spasm #14 02/14/22 tabs naproxen 250 mg tablet 250 mg PO BID PRN pain #30 tabs 02/14/22 albuterol sulfate 2.5 mg/3 mL 2.5 mg (3 mL) inhalation Q3H PRN 10/13/22 (0.083 %) solution for nebulization shortness of breath or wheezing #90 mL benzonatate 200 mg capsule 200 mg PO TID PRN cough #14 caps 10/13/22 inhalational spacing device (Space #1 ea 10/13/22 Chamber) methylprednisolone 4 mg tablets in See Rx Instructions PO .COMPLEX 10/13/22 a dose pack (Medrol (Miguel)) #21 ea Allergies Allergy/AdvReac Type Severity Reaction Status Date / Time No Known Drug Allergies Allergy Unverified 07/29/22 10:52 Review of Systems Review of Systems Narrative: GENERAL: See HPI HEENT: See HPI RESPIRATORY: See HPI CARDIOVASCULAR: Denies chest pain, palpitations, orthopnea, edema, GASTROINTESTINAL: See HPI : Denies dysuria, frequency, incontinence, hematuria, urinary retention. MUSCULOSKELETAL: denies weakness, joint pain, or bony pain SKIN: Denies rash, skin lesions, or other NEUROLOGIC: Denies weakness, headache, numbness, change in speech, confusion, seizures, incoordination. PSYCHIATRIC: No concerning psychosocial issues. 12 point review of systems is negative except for those stated above Patient History Social History Smoking Status: Never smoker Smoking Status: Never smoker alcohol intake frequency: holidays/special occasions only Substance Use Type: does not use Exam Narrative Exam Narrative: GENERAL: [52] year old patient appears stated age. Well-developed patient, in mild distress. HEAD: Atraumatic. Normocephalic. EYES: Pupils equal round and reactive. Extraocular motions intact. No scleral icterus. No injection or drainage. ENT: Clear nasal drainage, no purulence. Throat without erythema, tonsillar hypertrophy or exudate, clear posterior drainage. Airway patent. NECK: Trachea midline. Non tender CARDIOVASCULAR: Regular rate and rhythm without murmurs, gallops, or rubs. RESPIRATORY: Clear to auscultation. Breath sounds equal bilaterally. No wheezes, rales, or rhonchi. GASTROINTESTINAL: Abdomen soft, non-tender, nondistended. EXTREMITIES: No edema or joint tenderness. BACK: Nontender without deformity or crepitance. No flank tenderness. NEURO: AOx3. SKIN: No rash or erythema of visible areas Initial Vital Signs Initial Vital Signs: Vital Signs Temperature 97.9 F 10/31/22 07:52 Pulse Rate 95 H 10/31/22 07:52 Respiratory Rate 16 10/31/22 07:52 Blood Pressure 135/85 10/31/22 07:52 Pulse Oximetry 99 10/31/22 07:52 Oxygen Delivery Method 10/31/22 07:52 Course Orders Ordered: ED Orders 10/31/22 07:50 Covid-19 + FLU A/B + RSV - PCR Stat Throat Culture Stat 10/31/22 07:55 XR chest 2V Stat Vital Signs Vital signs: Vital Signs - 8 hr 10/31/22 07:52 Temperature 97.9 F Pulse Rate 95 H Respiratory Rate 16 Blood Pressure 135/85 Pulse Oximetry 99 Oxygen Delivery Method Room Air Medical Decision Making Lab Data Labs: Lab Results 10/31/22 Range/Units 07:50 SARS-CoV-2 (PCR) Positive H (Negative) Influenza A (RT-PCR) Flu a negative (NEGATIVE) Influenza B (RT-PCR) Flu b negative (NEGATIVE) RSV (PCR) Negative (Negative) Point of Care Testing Rapid Strep A Negative Point of care testing: Point of Care Testing Rapid Strep A Negative Imaging Data Chest x-ray: Radiologist's Impression: Close Chest X-Ray (Signed) Chadwick Guadarrama - 10/31/22 Shoulder MRI (Signed) Morris Ayoub - 08/16/22 Injection for MRI Arthrogram (Signed) Morris Ayoub - 08/16/22 Pelvis X-Ray (Signed) Brittney Augustine - 02/14/22 Lumbar Spine X-Ray (Signed) Brittney Augustine - 02/14/22 [place] [address] XRay Report Signed Patient: Sheyla Kenney MR#: [id number] : 1970 Acct:[id number] Age/Sex: 52 / F Date of Service: 10/31/22 Loc: ED Accession Number: [id number] ?? Procedure: XR chest 2V Ordering Provider: Zheng Mcdaniels D.O. PROCEDURE:? XR CHEST 2V ? INDICATIONS:? coughing, short of breath x 2 months ? TECHNIQUE:? 2 views of the chest were acquired.? ? COMPARISON:? [facility], CR, XR CHEST 2 VIEWS, 08/14/2021, 15:19.? [facility], CR, XR CHEST 2 VIEWS, 06/12/2021, 10:00. ? FINDINGS:? ? Surgical changes and devices:? None.? ? Lungs and pleura:? Lungs are clear.? No pleural effusions or pneumothorax.? ? Mediastinum:? Mediastinal contours are normal.? Heart size is normal.? ? Bones and chest wall:? No suspicious bony abnormalities.? Soft tissues appear unremarkable.? IMPRESSION:? ? No focal infiltrates are seen. ? ? Dictated by: Chadwick Guadarrama M.D. on 10/31/2022 at 7:31 ? ? Approved by: Chadwick Guadarrama M.D. on 10/31/2022 at 7:31 ? MDM Narrative Medical decision making narrative: [52-year-old female with history of asthma presents with 1-2 months of upper respiratory complaints] Multiple etiologies for patient's symptoms considered including, but not limited to: [COVID, flu, pneumonia, atypical pneumonia versus other] Prior Charts reviewed: Including prior ED notes from 2021 Labs reviewed and interpreted by myself: Respiratory swab positive for COVID Imaging reviewed: Chest x-ray absent of any obvious infiltrate Patient's symptoms reassuring and she is in no respiratory distress, not requiring supplemental oxygen and absence of signs of dehydration. She is tolerating orals and there is currently no indication for further workup. Findings and discharge diagnosis discussed with patient/family followed by verbalization of understanding Return precautions discussed with patient/family whom verbalize understanding of diagnosis and plan Discharge Plan Departure Patient Disposition: Home Clinical Impression: COVID-19 Instructions: COVID-19 Activity Restrictions/Additional Instructions: *You have been diagnosed with [ COVID-19] *What to do: ?* per recommendations from the CDC and the [facility] Department of Health ?* stay home except to get medical care. ?Restrict activities outside your home, except for getting medical care. ?Do not go to work, school, or public areas. ?Avoid using public transportation, ride sharing, or taxis. ?* separate yourself from other people in your home. ?* call ahead before visiting your doctor ?* Wear a facemask ?* Cover your coughs and sneezes ?* Clean your hands often ?* Avoid sharing household items ?* Clean all high-touch services every day ?* Monitor your symptoms and seek prompt medical attention if your illness is worsening, particularly with difficulty in breathing. You may discontinue your isolation when: ?1. You have been fever-free for at least 24 hours without the use of fever reducing medication, AND ?2. Your symptoms are getting better, AND ?3. At least 5 days have passed since symptoms first appeared ?4. If you have fever, continue to stay home until fever resolves Individuals with laboratory confirmed COVID-19 who have not had any symptoms may discontinue home isolation when at least 5 days have passed since the date of their first COVID-19 diagnostic test and have had no subsequent illness You should notifiy any friends and family that have been in close contact *If up to date on COVID Vaccines, then they do not need to quarantine unless symptoms develop. Get tested on day 5 (or sooner if symptoms develop). Take precautions and watch for symptoms until day 10 *If NOT up to date on COVID Vaccines, then CDC recommends quarantine for at least 5 full days. Wear a well fitted mask at home if you must be around others. If they ?develop symptoms they should get tested. If they remain asymptomatic they should get tested on day 5. They should take precautions and monitor for symptoms until day 10. Prescriptions: No Action benzonatate 200 mg capsule 200 mg PO TID PRN (Reason: cough) Qty: 14 0RF methylprednisolone [Medrol (Miguel)] 4 mg tablets,dose pack See Rx Instructions .ROUTE .COMPLEX Qty: 21 0RF Rx Instructions: orally per package directions albuterol sulfate 2.5 mg /3 mL (0.083 %) solution for nebulization 2.5 mg inhalation Q3H PRN (Reason: shortness of breath or wheezing) Qty: 90 0RF (DME) Space Chamber Spacer See Rx Instructions .Route Qty: 1 0RF Rx Instructions: As directed methocarbamol 500 mg tablet 500 mg PO Q8H PRN (Reason: muscle spasm) Qty: 14 0RF lidocaine [Lidoderm] 5 % adhesive patch,medicated 1 patch topical DAILY PRN (Reason: pain) Qty: 15 0RF Rx Instructions: leave on most painful area for up to 12 hrs naproxen 250 mg tablet 250 mg PO BID PRN (Reason: pain) Qty: 30 0RF Rx Instructions: with food and water diclofenac sodium [Voltaren Arthritis Pain] 1 % gel 2 g topical QID PRN (Reason: pain/swelling) Qty: 100 0RF Rx Instructions: apply to single elbow, wrist or hand; for hand includes palm/fingers/back of hand Referrals: Izzy Jansen ND [Primary Care Provider] - Stand Alone Forms: Patient Portal/API
[2022-10-31 07:52] VITALS: BP 135/85; PULSE 95; RESP 16; TEMP 36.6; O2SAT 99; BMI 36.8
--- NOTE | 2022-10-31 07:55 | DI.RAD.S_ITS ---
PROCEDURE: XR CHEST 2V INDICATIONS: coughing, short of breath x 2 months TECHNIQUE: 2 views of the chest were acquired. COMPARISON: [facility], CR, XR CHEST 2 VIEWS, 08/14/2021, 15:19. [facility], CR, XR CHEST 2 VIEWS, 06/12/2021, 10:00. FINDINGS: Surgical changes and devices: None. Lungs and pleura: Lungs are clear. No pleural effusions or pneumothorax. Mediastinum: Mediastinal contours are normal. Heart size is normal. Bones and chest wall: No suspicious bony abnormalities. Soft tissues appear unremarkable. IMPRESSION: No focal infiltrates are seen. Dictated by: Chadwick Guadarrama M.D. on 10/31/2022 at 7:31 Approved by: Chadwick Guadarrama M.D. on 10/31/2022 at 7:31
[2022-10-31 08:33] LABS: Influenza A - CEPHEID Flu A NEGATIVE (NEGATIVE); Influenza B - CEPHEID Flu B NEGATIVE (NEGATIVE); Respiratory Syncytial Virus Negative (Negative)
[2022-10-31 08:39] LABS: COVID-19 CEPHEID 4-PLEX PCR POSITIVE (Negative)
== END 2022-10-31 08:57 | disposition home or self-care (01) ==
PROVIDERS: Emergency Provider Emergency Medicine; PCP Naturopath
DX: U07.1 COVID-19 (principal)
CPT/HCPCS: 0241U; 71046; 87070; 87880; 99283

== ENCOUNTER 2023-03-19 07:50 | Emergency (ER) | payer OTHER, MEDICAID, SELFPAY ==
[2023-03-19 07:53] VITALS: BP 133/81; PULSE 87; RESP 24; TEMP 37; O2SAT 96; BMI 38.2
[2023-03-19] MEDS: KETOROLAC 30 MG/ML VIAL IM (08:19)
--- NOTE | 2023-03-19 10:00 | ED.BACK ---
HPI - Back Pain/Injury General Chief Complaint: Back Pain/Injury Stated Complaint: back/spine pain Time Seen by Provider: 03/19/23 08:03 Source: patient History of Present Illness HPI Narrative: Patient 52-year-old female history of recent rotator cuff repair going to physical therapy she attended physical therapy 3 days ago the following day woke up with left-sided back pain. She says it radiates down into her buttock but no numbness tingling or weakness down her leg no changes in bowel or bladder habits. She is not had any painful or frequent urination. She is been using lidocaine patches along with the oxycodone that she was given for her surgery. She said nothing is helping. It is very tender to touch. Related Data Previous Rx's Medication Instructions Recorded diclofenac sodium 1 % topical gel 2 g topical QID PRN pain/swelling 02/14/22 (Voltaren Arthritis Pain) #100 grams lidocaine 5 % topical patch 1 patch topical DAILY PRN pain #15 02/14/22 (Lidoderm) ea methocarbamol 500 mg tablet 500 mg PO Q8H PRN muscle spasm #14 02/14/22 tabs naproxen 250 mg tablet 250 mg PO BID PRN pain #30 tabs 02/14/22 albuterol sulfate 2.5 mg/3 mL 2.5 mg (3 mL) inhalation Q3H PRN 10/13/22 (0.083 %) solution for nebulization shortness of breath or wheezing #90 mL benzonatate 200 mg capsule 200 mg PO TID PRN cough #14 caps 10/13/22 inhalational spacing device (Space #1 ea 10/13/22 Chamber) methylprednisolone 4 mg tablets in See Rx Instructions PO .COMPLEX 10/13/22 a dose pack (Medrol (Miguel)) #21 ea diazepam 5 mg tablet (Valium) 5 mg PO Q12HR PRN muscle spasm #10 03/19/23 tabs Allergies Allergy/AdvReac Type Severity Reaction Status Date / Time No Known Drug Allergies Allergy Verified 03/19/23 07:52 Review of Systems Review of Systems ROS Unobtainable: All systems reviewed & are unremarkable except as noted in HPI and below Patient History Social History Smoking Status: Never smoker Smoking Status: Never smoker alcohol intake frequency: holidays/special occasions only Substance Use Type: does not use Exam Initial Vital Signs Initial Vital Signs: Vital Signs Temperature 98.6 F 03/19/23 07:53 Pulse Rate 87 03/19/23 07:53 Respiratory Rate 24 03/19/23 07:53 Blood Pressure 133/81 03/19/23 07:53 Pulse Oximetry 96 03/19/23 07:53 Oxygen Delivery Method Room Air 03/19/23 07:53 GENERAL: Alert 52-year-old female sitting in chair resting comfortably and in no acute distress. HEENT: Head atraumatic,EOMI, pupils reactive, face symmetric, moist mucous membranes CARDIOVASCULAR: Regular rate and rhythm without murmurs, rubs or gallops. RESPIRATORY: Breath sounds equal bilaterally, no wheezes rales or rhonchi. ABDOMEN: Soft, nontender. Normoactive bowel sounds all 4 quadrants. No guarding or rebound. BACK: No vertebral tenderness tender left paraspinal muscle and rib reproducible with palpation she jumped off the chair. No contusion or trauma appreciated. : No CVA tenderness EXTREMITIES: Normal range of motion, no clubbing or edema. Neurovascularly intact NEUROLOGICAL: Alert and oriented x4. SKIN: Warm, dry, no laceration, no petechiae, no rashes or lesions. Course Orders Ordered: Discontinued Medications Ketorolac Tromethamine (Ketorolac 30 Mg/Ml Vial) 30 mg IM NOW ONE Stop: 03/19/23 08:04 Last Admin: 03/19/23 08:19 Dose: 30 mg Documented By: NR Vital Signs Vital signs: Vital Signs - 8 hr 03/19/23 07:53 Temperature 98.6 F Pulse Rate 87 Respiratory Rate 24 Blood Pressure 133/81 Pulse Oximetry 96 Oxygen Delivery Method Room Air MDM - Back Pain/Injury Lab Data Labs: Urine Dip Bedside Urine Glucose Negative Bedside Urine Bilirubin - Negative Bedside Urine Ketone - Negative Bedside Urine Occult Blood - Negative Bedside Urine Protein - Negative Bedside Urine Urobilinogen - Negative Bedside Urine Nitrite - Negative Bedside Urine Leukocytes +/- 15 Esterase MDM Narrative Medical decision making narrative: Patient 52-year-old female presenting today with muscle like spasm. She already has a lidocaine patch on however she is extremely tender to the area of that. Definitely reproducible with palpation. No cauda equina symptoms. She is not having any radiation of pain unlikely to be nephrolithiasis. She already has opiate medication at home from her recent surgery will add a muscle relaxer such as Valium. Urinalysis negative for hematuria and infection. Discharge Plan Departure Patient Disposition: Home Clinical Impression: Muscle spasm Instructions: DI for Back Spasm Activity Restrictions/Additional Instructions: *You have been diagnosed with muscle spasm *What to do: At this time recommend light activity no strenuous activity. Try heating pad as you have been doing along with some light stretches. May also try some arnica cream as well as the lidocaine patches. *Continue to take medications as directed Continue pain medications previously prescribed Valium 5 mg every 12 hours for muscle spasm *Follow up with your primary care provider in 2-3 days or call [phone] *Return to ER if you should have increasing pain numbness tingling weakness change in bowel or bladder habits [or] any new, worsening or concerning symptoms CONTROLLED SUBSTANCE DISCHARGE (Narcotoic/benzodiazepine/Flexeril/Phenergan) 1. You have been prescribed narcotic medications, it does have acetaminophen/Tylenol/paracetamol in it, DO NOT TAKE MORE THAN 4,00mg in 24 hours of Tylenol. TRAMADOL DOES NOT CONTAIN TYLENOL 2. Please understand that we cannot provide further refills of narcotics, benzodiazepines or controlled substances through the ED and her pain management will need to be through your provider. 3. While on these medications you cannot drive or operate heavy machinery. 4. You cannot sign legal documents or perform any duties such as this. 5. As long as you're taking opiate pain medications he should also be taking a stool softener such as Colace, Dulcolax, MiraLAX or prune juice, to help avoid constipation. Prescriptions: New diazepam [Valium] 5 mg tablet 5 mg PO Q12HR PRN (Reason: muscle spasm) Qty: 10 0RF No Action benzonatate 200 mg capsule 200 mg PO TID PRN (Reason: cough) Qty: 14 0RF methylprednisolone [Medrol (Miguel)] 4 mg tablets,dose pack See Rx Instructions .ROUTE .COMPLEX Qty: 21 0RF Rx Instructions: orally per package directions albuterol sulfate 2.5 mg /3 mL (0.083 %) solution for nebulization 2.5 mg inhalation Q3H PRN (Reason: shortness of breath or wheezing) Qty: 90 0RF (DME) Space Chamber Spacer See Rx Instructions .Route Qty: 1 0RF Rx Instructions: As directed methocarbamol 500 mg tablet 500 mg PO Q8H PRN (Reason: muscle spasm) Qty: 14 0RF lidocaine [Lidoderm] 5 % adhesive patch,medicated 1 patch topical DAILY PRN (Reason: pain) Qty: 15 0RF Rx Instructions: leave on most painful area for up to 12 hrs naproxen 250 mg tablet 250 mg PO BID PRN (Reason: pain) Qty: 30 0RF Rx Instructions: with food and water diclofenac sodium [Voltaren Arthritis Pain] 1 % gel 2 g topical QID PRN (Reason: pain/swelling) Qty: 100 0RF Rx Instructions: apply to single elbow, wrist or hand; for hand includes palm/fingers/back of hand Referrals: Izzy Jansen ND [Primary Care Provider] - Stand Alone Forms: Patient Portal/API
== END 2023-03-19 10:30 | disposition home or self-care (01) ==
PROVIDERS: Emergency Provider Emergency Medicine; PCP Naturopath
DX: M62.830 Muscle spasm of back (principal)
CPT/HCPCS: 81003; 96372; 99283; J1885

== ENCOUNTER 2023-04-22 17:20 | Emergency (ER) | payer OTHER, MEDICAID, SELFPAY ==
[2023-04-22 17:28] VITALS: BP 148/83; PULSE 74; RESP 18; TEMP 37; O2SAT 100; BMI 38.6
--- NOTE | 2023-04-22 17:44 | ED.NAVMDI ---
HPI - Nausea/Vomiting/Diarrhea General Chief complaint: Nausea/Vomiting/Diarrhea Stated complaint: Covid + Time Seen by Provider: 04/22/23 17:42 Source: patient Mode of arrival: Ambulatory History of Present Illness HPI Narrative: 52-year-old female nonsmoker presents stating that for the past few days she has felt a bit feverish and achy, she and other family members developed nausea a few days ago and had a few episodes of diarrhea today. She took a home COVID test and was positive. She states her work asked her for a confirmatory test and she is here to receive that test. She denies any significant cough or shortness of breath. She is otherwise well and free of complaint Related Data Previous Rx's Medication Instructions Recorded diclofenac sodium 1 % topical gel 2 g topical QID PRN pain/swelling 02/14/22 (Voltaren Arthritis Pain) #100 grams lidocaine 5 % topical patch 1 patch topical DAILY PRN pain #15 02/14/22 (Lidoderm) ea methocarbamol 500 mg tablet 500 mg PO Q8H PRN muscle spasm #14 02/14/22 tabs naproxen 250 mg tablet 250 mg PO BID PRN pain #30 tabs 02/14/22 albuterol sulfate 2.5 mg/3 mL 2.5 mg (3 mL) inhalation Q3H PRN 10/13/22 (0.083 %) solution for nebulization shortness of breath or wheezing #90 mL benzonatate 200 mg capsule 200 mg PO TID PRN cough #14 caps 10/13/22 inhalational spacing device (Space #1 ea 10/13/22 Chamber) methylprednisolone 4 mg tablets in See Rx Instructions PO .COMPLEX 10/13/22 a dose pack (Medrol (Miguel)) #21 ea diazepam 5 mg tablet (Valium) 5 mg PO Q12HR PRN muscle spasm #10 03/19/23 tabs Allergies Allergy/AdvReac Type Severity Reaction Status Date / Time No Known Drug Allergies Allergy Verified 03/19/23 07:52 Review of Systems Review of Systems Narrative: GENERAL: See HPI HEENT: See HPI RESPIRATORY: See HPI CARDIOVASCULAR: Denies chest pain, palpitations, orthopnea, edema, GASTROINTESTINAL: See HPI : Denies dysuria, frequency, incontinence, hematuria, urinary retention. MUSCULOSKELETAL: denies weakness, joint pain, or bony pain SKIN: Denies rash, skin lesions, or other NEUROLOGIC: Denies weakness, headache, numbness, change in speech, confusion, seizures, incoordination. PSYCHIATRIC: No concerning psychosocial issues. 12 point review of systems is negative except for those stated above Patient History Social History Smoking Status: Never smoker Smoking Status: Never smoker alcohol intake frequency: holidays/special occasions only Substance Use Type: does not use Exam Narrative Exam Narrative: GEN: AOx3 and in mild distress EYES: Pupils are equal, round, and reactive to light and accommodation. Extraoccular muscles are intact bilaterally. There is no subconjunctival hemorrhage or exudate. CHEST: Lungs are clear to auscultation bilaterally and free of wheezes, rales, or rhonchi. Heart rate is regular rhythm, there are no murmurs, clicks, rubs, or gallops. There is no chest wall tenderness. ABD: Abdomen is soft and nontender. There is no guarding or rebound. Bowel sounds are normal in all 4 quadrants. There is no mass or organomegaly. EXT: Full painless ROM of all extremities with no loss of sensation or strength. SKIN: Warm, pink, and dry. No erythema or rash Initial Vital Signs Initial Vital Signs: Vital Signs Temperature 98.6 F 04/22/23 17:28 Pulse Rate 74 04/22/23 17:28 Respiratory Rate 18 04/22/23 17:28 Blood Pressure 148/83 H 04/22/23 17:28 Pulse Oximetry 100 04/22/23 17:28 Oxygen Delivery Method Room Air 04/22/23 17:28 Course Orders Ordered: ED Orders 04/22/23 17:41 COVID19 -Nasal RAPID Stat Vital Signs Vital signs: Vital Signs - 8 hr 04/22/23 17:28 Temperature 98.6 F Pulse Rate 74 Respiratory Rate 18 Blood Pressure 148/83 H Pulse Oximetry 100 Oxygen Delivery Method Room Air MDM - Nausea/Vomiting/Diarrhea Lab Data Labs: Lab Results 04/22/23 Range/Units 17:41 SARS-CoV-2 (PCR) Negative (Negative) MDM Narrative Medical decision making narrative: [52] year old patient presents with mild body aches, nausea and diarrhea with home COVID test positive Multiple etiologies for patient's symptoms considered including, but not limited to: [COVID versus other] Prior Charts reviewed in our EMR Primary Historian: patient Labs reviewed and interpreted by myself: Patient discharged prior to test results which eventually returned negative Findings and discharge diagnosis discussed with patient/family followed by verbalization of understanding Return precautions discussed with patient/family whom verbalize understanding of diagnosis and plan Discharge Plan Departure Patient Disposition: Home Clinical Impression: COVID-19 Instructions: COVID-19 Activity Restrictions/Additional Instructions: *You have been diagnosed with [ COVID-19] *What to do: ?* per recommendations from the CDC and the [facility] Department of Health ?* stay home except to get medical care. ?Restrict activities outside your home, except for getting medical care. ?Do not go to work, school, or public areas. ?Avoid using public transportation, ride sharing, or taxis. ?* separate yourself from other people in your home. ?* call ahead before visiting your doctor ?* Wear a facemask ?* Cover your coughs and sneezes ?* Clean your hands often ?* Avoid sharing household items ?* Clean all high-touch services every day ?* Monitor your symptoms and seek prompt medical attention if your illness is worsening, particularly with difficulty in breathing. You may discontinue your isolation when: ?1. You have been fever-free for at least 24 hours without the use of fever reducing medication, AND ?2. Your symptoms are getting better, AND ?3. At least 5 days have passed since symptoms first appeared ?4. If you have fever, continue to stay home until fever resolves Individuals with laboratory confirmed COVID-19 who have not had any symptoms may discontinue home isolation when at least 5 days have passed since the date of their first COVID-19 diagnostic test and have had no subsequent illness You should notifiy any friends and family that have been in close contact *If up to date on COVID Vaccines, then they do not need to quarantine unless symptoms develop. Get tested on day 5 (or sooner if symptoms develop). Take precautions and watch for symptoms until day 10 *If NOT up to date on COVID Vaccines, then CDC recommends quarantine for at least 5 full days. Wear a well fitted mask at home if you must be around others. If they ?develop symptoms they should get tested. If they remain asymptomatic they should get tested on day 5. They should take precautions and monitor for symptoms until day 10. Prescriptions: No Action benzonatate 200 mg capsule 200 mg PO TID PRN (Reason: cough) Qty: 14 0RF methylprednisolone [Medrol (Miguel)] 4 mg tablets,dose pack See Rx Instructions .ROUTE .COMPLEX Qty: 21 0RF Rx Instructions: orally per package directions albuterol sulfate 2.5 mg /3 mL (0.083 %) solution for nebulization 2.5 mg inhalation Q3H PRN (Reason: shortness of breath or wheezing) Qty: 90 0RF (DME) Space Chamber Spacer See Rx Instructions .Route Qty: 1 0RF Rx Instructions: As directed diazepam [Valium] 5 mg tablet 5 mg PO Q12HR PRN (Reason: muscle spasm) Qty: 10 0RF methocarbamol 500 mg tablet 500 mg PO Q8H PRN (Reason: muscle spasm) Qty: 14 0RF lidocaine [Lidoderm] 5 % adhesive patch,medicated 1 patch topical DAILY PRN (Reason: pain) Qty: 15 0RF Rx Instructions: leave on most painful area for up to 12 hrs naproxen 250 mg tablet 250 mg PO BID PRN (Reason: pain) Qty: 30 0RF Rx Instructions: with food and water diclofenac sodium [Voltaren Arthritis Pain] 1 % gel 2 g topical QID PRN (Reason: pain/swelling) Qty: 100 0RF Rx Instructions: apply to single elbow, wrist or hand; for hand includes palm/fingers/back of hand Referrals: Izzy Jansen ND [Primary Care Provider] - Stand Alone Forms: Patient Portal/API
[2023-04-22 18:13] LABS: COVID19 -Nasal RAPID Negative (Negative)
== END 2023-04-22 17:54 | disposition home or self-care (01) ==
PROVIDERS: Emergency Provider Emergency Medicine; PCP Naturopath
DX: U07.1 COVID-19 (principal)
CPT/HCPCS: 87635; 99281; 99282; C9803

== ENCOUNTER 2024-01-04 14:17 | Emergency (ER) | payer OTHER, MEDICAID, SELFPAY ==
[2024-01-04 14:24] VITALS: BP 139/94; PULSE 78; RESP 18; TEMP 37; O2SAT 99; BMI 37.0
--- NOTE | 2024-01-04 14:47 | DI.RAD.S_ITS ---
PROCEDURE: XR LUMBAR SPINE 2-3V INDICATIONS: low back pain x 7 days TECHNIQUE: 3 views of the lumbar spine were acquired. COMPARISON: [facility], CR, XR LUMBAR SPINE 2-3V, 02/14/2022, 12:43. FINDINGS: Bones: 5 [id number] vertebrae are present. There is 7 mm retrolisthesis of L2 on L3 and 6 mm retrolisthesis of L3 on L4. Degenerative endplate changes are noted throughout lower thoracic and lumbar spine . No vertebral body compression fractures. No suspicious bony lesions. Soft tissues: Overlying bowel gas pattern is normal. No suspicious soft tissue calcifications. IMPRESSION: No acute lumbar spine compression fracture. Degenerative disc disease throughout lumbar spine. Grade 1 retrolisthesis at L2-3 and L3-4 levels as above. Dictated by: Calixto Lazo M.D. on 01/04/2024 at 16:18 Approved by: Calixto Lazo M.D. on 01/04/2024 at 16:20
[2024-01-04] MEDS: KETOROLAC 30 MG/ML VIAL IM (14:56)
--- NOTE | 2024-01-04 15:10 | ED_ITS ---
HPI - Back Pain/Injury <Sanjana Ayala PA-C - Last Filed: 01/04/24 18:44> General Chief Complaint: Back Pain/Injury Stated Complaint: severe low back Time Seen by Provider: 01/04/24 14:40 Source: patient History of Present Illness HPI Narrative: Patient is a 53 year old female who presents with 1 week of low back pain. She reports a history of low back pain that was treated with physical therapy. She has never had back surgery or MRI of her back. 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 The pain is in her mid low back. It radiates into her bilateral hips. There is no pain that shoots down her legs. She has been taking ibuprofen and has used heat and ice, but pain does not seem to be improving. Patient denies loss of bowel or bladder control, saddle anesthesia or lower extremity weakness. She relates that the pain is currently 10/10. Patient denies any recent trauma or fall. Related Data Previous Rx's Medication Instructions Recorded albuterol sulfate 2.5 mg/3 mL 2.5 mg (3 mL) inhalation Q3H PRN 10/13/22 (0.083 %) solution for nebulization shortness of breath or wheezing #90 mL inhalational spacing device (Space #1 ea 10/13/22 Chamber) diazepam 5 mg tablet (Valium) 5 mg PO Q12HR PRN muscle spasm #10 03/19/23 tabs cyclobenzaprine 5 mg tablet 5 mg PO TID PRN muscle spasm #10 01/04/24 tabs ibuprofen 600 mg tablet 600 mg PO Q6H PRN pain #30 tabs 01/04/24 Allergies Allergy/AdvReac Type Severity Reaction Status Date / Time No Known Drug Allergies Allergy Verified 03/19/23 07:52 Review of Systems <Sanjana Ayala PA-C - Last Filed: 01/04/24 18:44> Review of Systems ROS Unobtainable: All systems reviewed & are unremarkable except as noted in HPI and below Patient History <Sanjana Ayala PA-C - Last Filed: 01/04/24 18:44> Social History Smoking Status: Never smoker Smoking Status: Never smoker alcohol intake frequency: holidays/special occasions only Substance Use Type: does not use Exam <Sanjana Ayala PA-C - Last Filed: 01/04/24 18:44> Narrative Exam Narrative: GENERAL: 53 year old patient appears stated age. Well-developed patient, in no visible distress. NEURO: AOx3. HEAD: Atraumatic. Normocephalic. EYES: Pupils equal round and reactive. Extraocular motions intact. No scleral icterus. No injection or drainage. ENT: Nose without bleeding or purulent drainage. RESPIRATORY: No increased work of breathing SPINE: Midline spinal tenderness over the mid lumbar spine with right-sided paraspinal tenderness to palpation. Strength is intact in lower extremities. SKIN: No rash or erythema of visible areas Initial Vital Signs Initial Vital Signs: Vital Signs Temperature 98.6 F 01/04/24 14:24 Pulse Rate 78 01/04/24 14:24 Respiratory Rate 18 01/04/24 14:24 Blood Pressure 139/94 H 01/04/24 14:24 Pulse Oximetry 99 01/04/24 14:24 Oxygen Delivery Method Room Air 01/04/24 14:24 <oZ Sosa MD - Last Filed: 01/05/24 07:56> Initial Vital Signs Initial Vital Signs: Vital Signs Temperature 98.6 F 01/04/24 14:24 Pulse Rate 78 01/04/24 14:24 Respiratory Rate 18 01/04/24 14:24 Blood Pressure 139/94 H 01/04/24 14:24 Pulse Oximetry 99 01/04/24 14:24 Oxygen Delivery Method Room Air 01/04/24 14:24 Course <Sanjana Ayala PA-C - Last Filed: 01/04/24 18:44> Orders Ordered: Discontinued Medications Ketorolac Tromethamine (Ketorolac 30 Mg/Ml Vial) 30 mg IM NOW ONE Stop: 01/04/24 14:48 Last Admin: 01/04/24 14:56 Dose: 30 mg Documented By: HOLLY Vital Signs Vital signs: Vital Signs - 8 hr 01/04/24 14:24 01/04/24 16:55 Temperature 98.6 F Pulse Rate 78 67 Respiratory Rate 18 20 Blood Pressure 139/94 H 167/82 H Pulse Oximetry 99 99 Oxygen Delivery Method Room Air Room Air <Zo Sosa MD - Last Filed: 01/05/24 07:56> Orders Ordered: Discontinued Medications Ketorolac Tromethamine (Ketorolac 30 Mg/Ml Vial) 30 mg IM NOW ONE Stop: 01/04/24 14:48 Last Admin: 01/04/24 14:56 Dose: 30 mg Documented By: HOLLY Vital Signs Vital signs: Vital Signs - 8 hr 01/04/24 14:24 01/04/24 16:55 Temperature 98.6 F Pulse Rate 78 67 Respiratory Rate 18 20 Blood Pressure 139/94 H 167/82 H Pulse Oximetry 99 99 Oxygen Delivery Method Room Air Room Air MDM - Back Pain/Injury <Sanjana Ayala PA-C - Last Filed: 01/04/24 18:44> Imaging Data Lumbar spine x-ray: Radiologist's Impression: PROCEDURE: XR LUMBAR SPINE 2-3V INDICATIONS: low back pain x 7 days TECHNIQUE: 3 views of the lumbar spine were acquired. COMPARISON: [facility], , XR LUMBAR SPINE 2-3V, 02/14/2022, 12:43. FINDINGS: Bones: 5 [id number] vertebrae are present. There is 7 mm retrolisthesis of L2 on L3 and 6 mm retrolisthesis of L3 on L4. Degenerative endplate changes are noted throughout lower thoracic and lumbar spine . No vertebral body compression fractures. No suspicious bony lesions. Soft tissues: Overlying bowel gas pattern is normal. No suspicious soft tissue calcifications. IMPRESSION: No acute lumbar spine compression fracture. Degenerative disc disease throughout lumbar spine. Grade 1 retrolisthesis at L2-3 and L3-4 levels as above. Dictated by: Calixto Lazo M.D. on 01/04/2024 at 16:18 Approved by: Calixto Lazo M.D. on 01/04/2024 at 16:20 [facility] Narrative Medical decision making narrative: Multiple etiologies for patient's symptoms considered including, but not limited to: Lumbar strain, fracture, dislocation, cauda equina, spinal epidural abscess, spinal hematoma. Patient with no red flags for emergent spinal condition such as cauda equina or spinal hematoma. Patient does endorse midline tenderness to palpation and has no recent imaging. We will obtain lumbar x-rays today and treat symptomatically. Xrays show No acute lumbar spine compression fracture. Degenerative disc disease throughout lumbar spine. Grade 1 retrolisthesis at L2-3 and L3-4 levels as above. Advised treatment with rest, muscle relaxers, ibuprofen and referral to physical therapy. Advised patient to contact her PCP to streamline the referral process. Also provided a note for accommodations at work. Discussed possibility of using family medical leave for reduced work hours which she can discuss with the PCP if she qualifies. Patient understands return precautions Patient's symptoms improved over duration of stay with above-stated therapies. Findings and discharge diagnosis discussed with patient/family followed by verbalization of understanding Return precautions discussed with patient/family whom verbalize understanding of diagnosis and plan Discharge Plan Departure Patient Disposition: Home Clinical Impression: Low back pain Qualifiers: Chronicity: acute Back pain laterality: bilateral Sciatica presence: without sciatica Qualified Code(s): M54.50 - Low back pain, unspecified Instructions: DI for Low Back Pain Activity Restrictions/Additional Instructions: *You have been diagnosed with low back pain. Your x-ray shows no acute lumbar spine compression fracture. Degenerative disc disease throughout lumbar spine. Grade 1 retrolisthesis at L2-3 and L3-4 levels as above. I would recommend contacting your primary care and asking them to place a referral to physical therapy. This will likely be a smoother process than if I refer you. I have prescribed a short course of muscle relaxants to be used as needed for muscle spasm and high-dose ibuprofen to be used for pain. You can also talk to your PCP about taking time off from work if you qualify to allow your back to rest. *What to do: *Please continue to take your regular medications as directed. [x ] New medication prescriptions sent to your pharmacy: [facility] [ ] New medication written as a paper prescription [ ] No new medications given *Please follow up with your primary care provider in 2-3 days, call for an appointment. Let them know you were seen in the Emergency Department and that we ask that you be seen in follow up. We will electronically transmit a record of today's note if your PCP is in our system *If you do not have a primary care provider please contact the [facility] Resource line at [phone]. They will ask some questions about your medical history and help get you set up with a doctor in the community. *Return to Emergency Department if you should have any new, worsening or concerning symptoms, such as [fever greater than 101 F, shaking chills, worsening pain, persistent vomiting or other concerning symptoms]. Prescriptions: New ibuprofen 600 mg tablet 600 mg PO Q6H PRN (Reason: pain) Qty: 30 0RF cyclobenzaprine 5 mg tablet 5 mg PO TID PRN (Reason: muscle spasm) Qty: 10 0RF Discontinued benzonatate 200 mg capsule 200 mg PO TID PRN (Reason: cough) Qty: 14 0RF methylprednisolone [Medrol (Miguel)] 4 mg tablets,dose pack See Rx Instructions .ROUTE .COMPLEX Qty: 21 0RF Rx Instructions: orally per package directions methocarbamol 500 mg tablet 500 mg PO Q8H PRN (Reason: muscle spasm) Qty: 14 0RF lidocaine [Lidoderm] 5 % adhesive patch,medicated 1 patch topical DAILY PRN (Reason: pain) Qty: 15 0RF Rx Instructions: leave on most painful area for up to 12 hrs naproxen 250 mg tablet 250 mg PO BID PRN (Reason: pain) Qty: 30 0RF Rx Instructions: with food and water diclofenac sodium [Voltaren Arthritis Pain] 1 % gel 2 g topical QID PRN (Reason: pain/swelling) Qty: 100 0RF Rx Instructions: apply to single elbow, wrist or hand; for hand includes palm/fingers/back of hand No Action albuterol sulfate 2.5 mg /3 mL (0.083 %) solution for nebulization 2.5 mg inhalation Q3H PRN (Reason: shortness of breath or wheezing) Qty: 90 0RF (DME) Space Chamber Spacer See Rx Instructions .Route Qty: 1 0RF Rx Instructions: As directed diazepam [Valium] 5 mg tablet 5 mg PO Q12HR PRN (Reason: muscle spasm) Qty: 10 0RF Referrals: Izzy Jansen ND [Primary Care Provider] - Stand Alone Forms: Patient Portal/API, Work Release Note ED Sign-out <Zo Sosa MD - Last Filed: 01/05/24 07:56> Cosign ED Attending Cosignature Attestation: I was immediately available in the department for consultation throughout this patient's visit. Zo Sosa MD
[2024-01-04 16:55] VITALS: BP 167/82; PULSE 67; RESP 20; O2SAT 99
== END 2024-01-04 16:57 | disposition home or self-care (01) ==
PROVIDERS: Emergency Provider Physician Assistant; PCP Naturopath
DX: M54.50 Low back pain, unspecified (principal)
CPT/HCPCS: 72100; 96372; 99283; J1885

== ENCOUNTER 2024-01-06 18:27 | Emergency (ER) | payer OTHER, MEDICAID, SELFPAY ==
[2024-01-06 18:34] VITALS: BP 138/71; PULSE 91; RESP 18; TEMP 36.9; O2SAT 100
--- NOTE | 2024-01-06 18:34 | DI.RAD.S_ITS ---
PROCEDURE: XR ANKLE RT MIN 3V INDICATIONS: pain s/p fall TECHNIQUE: 3 views of the ankle were acquired. COMPARISON: [facility], CR, XR FOOT 3VW RT, 10/20/2015, 16:27. FINDINGS: Bones: Small ossicles adjacent to the tip of the fibula, again seen. Likely sequelae of remote injury. No acute fracture identified. No dislocations. Ankle mortise is normally aligned. No suspicious bony lesions. 1st digit screws. Soft tissues: No tibiotalar joint effusion. Achilles tendon appears normal. IMPRESSION: No acute fracture demonstrated. Dictated by: Alberto Roman M.D. on 01/06/2024 at 20:23 Approved by: Alberto Roman M.D. on 01/06/2024 at 20:25
[2024-01-06 22:54] VITALS: BP 117/69; PULSE 69; RESP 16; O2SAT 99
--- NOTE | 2024-01-06 23:34 | ED.LOWEXIN ---
HPI - Extremity Injury (Lower) General Chief Complaint: Extremity Injury, Lower Stated Complaint: fall, ankle injury Time Seen by Provider: 01/06/24 23:34 Source: patient Mode of arrival: Ambulatory History of Present Illness HPI Narrative: Patient is a 53-year-old female who presents today with right ankle pain and injury. She is noncontributing past medical history. She has video from her ring normal where she rolled off couple stairs. No other injury denies any knee pain or head injury. She was able to bear some weight on her ankle heart. Denies any foot injury Related Data Previous Rx's Medication Instructions Recorded albuterol sulfate 2.5 mg/3 mL 2.5 mg (3 mL) inhalation Q3H PRN 10/13/22 (0.083 %) solution for nebulization shortness of breath or wheezing #90 mL inhalational spacing device (Space #1 ea 10/13/22 Chamber) diazepam 5 mg tablet (Valium) 5 mg PO Q12HR PRN muscle spasm #10 03/19/23 tabs cyclobenzaprine 5 mg tablet 5 mg PO TID PRN muscle spasm #10 01/04/24 tabs ibuprofen 600 mg tablet 600 mg PO Q6H PRN pain #30 tabs 01/04/24 Allergies Allergy/AdvReac Type Severity Reaction Status Date / Time No Known Drug Allergies Allergy Verified 01/06/24 18:33 Patient History Social History Smoking Status: Never smoker Smoking Status: Never smoker alcohol intake frequency: holidays/special occasions only Substance Use Type: does not use Exam Initial Vital Signs Initial Vital Signs: Vital Signs Temperature 98.5 F 01/06/24 18:34 Pulse Rate 91 H 01/06/24 18:34 Respiratory Rate 18 01/06/24 18:34 Blood Pressure 138/71 01/06/24 18:34 Pulse Oximetry 100 01/06/24 18:34 Oxygen Delivery Method Room Air 01/06/24 18:34 GENERAL: Well-appearing, well-nourished and in no acute distress. CARDIOVASCULAR: peripheral pulses in tact, cap refill <2 sec RESPIRATORY: No respiratory distress, speaks in full sentences without difficulty EXTREMITIES: Normal range of motion, no clubbing or edema. Neurovascularly intact Right lower extremity: Knee is stable ankle mildly tender laterally Achilles tendon into he distal pedal pulse intact NEUROLOGICAL: Cranial nerves II through XII grossly intact. Normal gait and speech. SKIN: Warm, dry, no petechiae, no rashes or lesions. Course Orders Ordered: ED Orders 01/06/24 18:34 XR ankle RT min 3V Stat Vital Signs Vital signs: Vital Signs - 8 hr 01/06/24 18:34 01/06/24 22:54 01/07/24 00:10 Temperature 98.5 F 98 F Pulse Rate 91 H 69 77 Respiratory Rate 18 16 16 Blood Pressure 138/71 117/69 118/78 Pulse Oximetry 100 99 99 Oxygen Delivery Method Room Air Room Air Room Air MDM - Extremity Injury (Lower) Imaging Data Extremity x-ray #1: Radiologist's Impression: PROCEDURE: XR ANKLE RT MIN 3V INDICATIONS: pain s/p fall TECHNIQUE: 3 views of the ankle were acquired. COMPARISON: [facility], CR, XR FOOT 3VW RT, 10/20/2015, 16:27. FINDINGS: Bones: Small ossicles adjacent to the tip of the fibula, again seen. Likely sequelae of remote injury. No acute fracture identified. No dislocations. Ankle mortise is normally aligned. No suspicious bony lesions. 1st digit screws. Soft tissues: No tibiotalar joint effusion. Achilles tendon appears normal. IMPRESSION: No acute fracture demonstrated. Dictated by: Alberto Roman M.D. on 01/06/2024 at 20:23 [facility] Narrative Medical decision making narrative: Patient is a 53-year-old female presents today with right ankle pain after mechanical fall. X-ray is negative for fracture. She is neurovascularly intact. She is offered crutches but declines due to her shoulders. Recommend supportive care icing elevating. Discharge Plan Departure Patient Disposition: Home Clinical Impression: Right ankle sprain Instructions: Ankle Sprain Activity Restrictions/Additional Instructions: *You have been diagnosed with right ankle sprain *What to do: Increase activity as tolerated may weightbear as tolerated. Elevate and ice *Continue to take medications as directed Tylenol Motrin as needed for pain *Follow up with your primary care provider in 2-3 days or call [phone] *Return to ER if you should have increasing pain swelling or any new, worsening or concerning symptoms Prescriptions: No Action albuterol sulfate 2.5 mg /3 mL (0.083 %) solution for nebulization 2.5 mg inhalation Q3H PRN (Reason: shortness of breath or wheezing) Qty: 90 0RF (DME) Space Chamber Spacer See Rx Instructions .Route Qty: 1 0RF Rx Instructions: As directed diazepam [Valium] 5 mg tablet 5 mg PO Q12HR PRN (Reason: muscle spasm) Qty: 10 0RF ibuprofen 600 mg tablet 600 mg PO Q6H PRN (Reason: pain) Qty: 30 0RF cyclobenzaprine 5 mg tablet 5 mg PO TID PRN (Reason: muscle spasm) Qty: 10 0RF Referrals: Izzy Jansen ND [Primary Care Provider] - Stand Alone Forms: Patient Portal/API
[2024-01-07 00:10] VITALS: BP 118/78; PULSE 77; RESP 16; TEMP 36.6; O2SAT 99
== END 2024-01-07 00:10 | disposition home or self-care (01) ==
PROVIDERS: Emergency Provider Emergency Medicine; PCP Naturopath
DX: S93.401A Sprain of unspecified ligament of right ankle, initial encounter (principal); X50.1XXA Overexertion from prolonged static or awkward postures, initial encounter
CPT/HCPCS: 73610; 99282; 99283

== ENCOUNTER 2024-01-30 19:03 | Emergency (ER) | payer OTHER, MEDICAID, SELFPAY ==
[2024-01-30 19:32] VITALS: BP 145/71; PULSE 76; RESP 16; TEMP 36.5; O2SAT 98; BMI 37.0
--- NOTE | 2024-01-30 19:35 | DI.RAD.S_ITS ---
PROCEDURE: XR ELBOW LT MIN 3V INDICATIONS: pain/maybe injury TECHNIQUE: 3 views of the elbow were acquired. COMPARISON: None. FINDINGS: Bones: There is prior internal fixation of proximal to mid radial and ulnar shafts. No gross hardware loosening or failure is seen. No fractures or dislocations. No suspicious bony lesions. Soft tissues: No elbow joint effusion. No suspicious soft tissue calcifications. IMPRESSION: No acute elbow fracture or dislocation. No significant joint effusion. Prior internal fixation of radial and ulnar shafts with postsurgical changes. No gross hardware loosening or failure. Dictated by: Calixto Lazo M.D. on 01/30/2024 at 19:58 Approved by: Calixto Lazo M.D. on 01/30/2024 at 20:00
--- NOTE | 2024-01-30 20:52 | PC.NURSE ---
Pt fell about 2-3 weeks ago, after [place].
--- NOTE | 2024-01-30 21:51 | ED.EXTPRO ---
HPI - Extremity Problem General Chief complaint: Extremity Problem,Nontraumatic Stated complaint: L Elbow Pain Time Seen by Provider: 01/30/24 20:54 Source: patient Mode of arrival: Ambulatory History of Present Illness HPI Narrative: 53-year-old female presents for evaluation of left elbow pain. She states that she had a ground level fall several weeks ago and has isolated pain just distal to her elbow joint. It does not hurt her very much on a day-to-day basis, but if she touches the area or places it on something it causes her pain. She was concerned that there may be a fracture or hardware malformation Related Data Previous Rx's Medication Instructions Recorded albuterol sulfate 2.5 mg/3 mL 2.5 mg (3 mL) inhalation Q3H PRN 10/13/22 (0.083 %) solution for nebulization shortness of breath or wheezing #90 mL inhalational spacing device (Space #1 ea 10/13/22 Chamber) diazepam 5 mg tablet (Valium) 5 mg PO Q12HR PRN muscle spasm #10 03/19/23 tabs cyclobenzaprine 5 mg tablet 5 mg PO TID PRN muscle spasm #10 01/04/24 tabs ibuprofen 600 mg tablet 600 mg PO Q6H PRN pain #30 tabs 01/04/24 Allergies Allergy/AdvReac Type Severity Reaction Status Date / Time No Known Drug Allergies Allergy Verified 01/06/24 18:33 Review of Systems Review of Systems Narrative: See HPI Patient History Social History Smoking Status: Never smoker Smoking Status: Never smoker alcohol intake frequency: holidays/special occasions only Substance Use Type: does not use Exam Initial Vital Signs Initial Vital Signs: Vital Signs Temperature 97.7 F 01/30/24 19:32 Pulse Rate 76 01/30/24 19:32 Respiratory Rate 16 01/30/24 19:32 Blood Pressure 145/71 H 01/30/24 19:32 Pulse Oximetry 98 01/30/24 19:32 Oxygen Delivery Method Room Air 01/30/24 19:32 Const: Awake, alert, no acute distress, nontoxic appearing MSK: No deformity, full range of motion, hyperalgesia proximal dorsal forearm near elbow joint Skin: Warm, Dry, intact, no rashes Neuro: AO x3, CN II-XII grossly intact, moves all extremities Course Orders Ordered: ED Orders 01/30/24 19:35 XR elbow LT min 3V Stat Vital Signs Vital signs: Vital Signs - 8 hr 01/30/24 19:32 Temperature 97.7 F Pulse Rate 76 Respiratory Rate 16 Blood Pressure 145/71 H Pulse Oximetry 98 Oxygen Delivery Method Room Air MDM - Extremity (Nontraumatic) MDM Narrative Medical decision making narrative: hyperalgesia just distal to elbow joint at dorsal forearm after fall. No deformity. Normal XR. Counseled to f/u with orthopedics. Tylenol and ibuprofen prn. MARSHALL wrap for comfort. Patient requested a note to take off of work tomorrow, which was given Discharge Plan Departure Patient Disposition: Home Clinical Impression: Elbow pain Instructions: DI for Elbow Pain Activity Restrictions/Additional Instructions: Take Tylenol and ibuprofen as needed for pain. Follow up with Orthopedic surgery if you continued to have pain in his elbow. Wear the Marshall wrap for comfort. Prescriptions: No Action albuterol sulfate 2.5 mg /3 mL (0.083 %) solution for nebulization 2.5 mg inhalation Q3H PRN (Reason: shortness of breath or wheezing) Qty: 90 0RF (DME) Space Chamber Spacer See Rx Instructions .Route Qty: 1 0RF Rx Instructions: As directed diazepam [Valium] 5 mg tablet 5 mg PO Q12HR PRN (Reason: muscle spasm) Qty: 10 0RF ibuprofen 600 mg tablet 600 mg PO Q6H PRN (Reason: pain) Qty: 30 0RF cyclobenzaprine 5 mg tablet 5 mg PO TID PRN (Reason: muscle spasm) Qty: 10 0RF Referrals: Izzy Jansen ND [Primary Care Provider] - Stand Alone Forms: Patient Portal/API, Work Release Note
== END 2024-01-30 22:02 | disposition home or self-care (01) ==
PROVIDERS: Emergency Provider Emergency Medicine; PCP Naturopath
DX: M25.522 Pain in left elbow (principal); W18.30XA Fall on same level, unspecified, initial encounter
CPT/HCPCS: 73080; 99283

== ENCOUNTER 2024-07-24 08:43 | Emergency (ER) | payer OTHER, MEDICAID, SELFPAY ==
[2024-07-24 09:05] VITALS: BP 130/81; PULSE 75; RESP 17; TEMP 36.7; O2SAT 98; BMI 37.5
--- NOTE | 2024-07-24 09:12 | DI.RAD.S_ITS ---
PROCEDURE: XR WRIST RT MIN 3V INDICATIONS: fall TECHNIQUE: 4 views of the wrist were acquired. COMPARISON: None. FINDINGS: Bones: No fractures or dislocations. No suspicious bony lesions. Soft tissues: No suspicious soft tissue calcifications. IMPRESSION: No visualized acute fracture or dislocation. However, if clinical concern and/or pain persist, short interval imaging followup in 7-10 days is recommended, as occult injury cannot be definitively excluded. Dictated by: Keyana Mcduffie M.D. on 07/24/2024 at 9:32 Approved by: Keyana Mcduffie M.D. on 07/24/2024 at 9:34
--- NOTE | 2024-07-24 11:29 | PC.NURSE ---
Fall on outstretched arm last night. Swelling noted, bruising to palm of hand. CMS intact. Pain worse with movement. No meds prior to arrival
[2024-07-24] MEDS: ACETAMINOPHEN 325 MG TABLET 975 MG PO (11:35)
--- NOTE | 2024-07-24 11:45 | ED.UPPEXIN ---
HPI - Extremity Injury (Upper) <Daryl Nunez PA-C - Last Filed: 07/24/24 11:53> General Chief Complaint: Extremity Injury, Upper Stated Complaint: fall, r wrist injury Time Seen by Provider: 07/24/24 09:42 Source: patient Mode of arrival: Family Vehicle History of Present Illness HPI narrative: 54-year-old female presents to the ED with right sided wrist pain status post a mechanical fall sustained last night. Patient states that she was walking home from her son's friend's house, when she misjudged the step on the sidewalk which caused her to fall. Patient states that she sustained a FOOSH injury on the right wrist as she braced for the fall. Patient endorses pain and swelling in the right wrist. Denies numbness, tingling, weakness. Related Data Previous Rx's Medication Instructions Recorded albuterol sulfate 2.5 mg/3 mL 2.5 mg (3 mL) inhalation Q3H PRN 10/13/22 (0.083 %) solution for nebulization shortness of breath or wheezing #90 mL inhalational spacing device (Space #1 ea 10/13/22 Chamber) diazepam 5 mg tablet (Valium) 5 mg PO Q12HR PRN muscle spasm #10 03/19/23 tabs cyclobenzaprine 5 mg tablet 5 mg PO TID PRN muscle spasm #10 01/04/24 tabs ibuprofen 600 mg tablet 600 mg PO Q6H PRN pain #30 tabs 01/04/24 Allergies Allergy/AdvReac Type Severity Reaction Status Date / Time No Known Drug Allergies Allergy Verified 07/24/24 09:11 Review of Systems <Daryl Nunez PA-C - Last Filed: 07/24/24 11:53> Constitutional Constitutional: Denies chills, Denies fatigue, Denies fever(s), Denies frequent falls, Denies lethargy and Denies weakness Eyes Eyes: Denies change in vision, Denies eye discharge, Denies irritation and Denies loss of vision ENT Ears, Nose, Mouth, and Throat: Denies change in voice, Denies dizziness, Denies neck pain, Denies sore throat and Denies throat swelling Cardiovascular Cardiovascular: Denies chest pain, Denies irregular heart rhythm, Denies lightheadedness, Denies palpitations, Denies dyspnea, Denies dyspnea on exertion and Denies orthopnea Respiratory Respiratory: Denies cough, Denies dyspnea, Denies dyspnea on exertion and Denies wheezing Gastrointestinal Gastrointestinal: Denies abdominal pain, Denies change in bowel habits, Denies diarrhea, Denies nausea and Denies vomiting Musculoskeletal Musculoskeletal: Denies neck pain and Denies numbness Comments: Right wrist pain and swelling Integumentary/Breasts Skin/Breast: Denies pruritus, Denies erythema, Denies rash and Denies wounds Neurologic Neurologic: Denies behavioral changes, Denies confusion, Denies dizziness, Denies frequent falls, Denies loss of vision, Denies numbness and Denies weakness Psychiatric Psychiatric: Denies anxiety, Denies behavioral changes, Denies confusion, Denies depression, Denies homicidal ideation and Denies suicidal ideation Endocrine Endocrine: Denies fatigue, Denies flushing and Denies palpitations Hematologic/Lymphatic Hematologic/Lymphatic: Denies easy bruising Allergic/Immunologic Allergic/Immunologic: Denies urticaria, Denies throat swelling and Denies wheezing Patient History <Daryl Nunez PA-C - Last Filed: 07/24/24 11:53> Social History Smoking Status: Never smoker Smoking Status: Never smoker alcohol intake frequency: holidays/special occasions only Substance Use Type: does not use Exam <Daryl Nunez PA-C - Last Filed: 07/24/24 11:53> Narrative Exam Narrative: Const General:?cooperative, healthy appearing and comfortable [facility] Head:?normal to inspection Ears:?hearing grossly normal bilaterally Nose:?external nose normal Face and sinus:?normal facial exam and sinuses nontender Mouth:?oral mucosae normal Throat:?posterior oropharynx normal Eyes General:?appearance normal, both eyes and all related structures Neck Neck:?normal visual inspection and no lymphadenopathy noted Resp Effort & Inspection:?normal respiratory effort Auscultation:?clear to auscultation bilaterally Cardio Rate:?regular rate Rhythm:?regular rhythm Musculoskeletal Right wrist swollen, tender to palpation. There is bruising on the palmar aspect. Range of motion limited by pain. Sensation is intact. Neurovascularly intact. Neuro General:?patient alert, patient awake and patient oriented x3 Initial Vital Signs Initial Vital Signs: Vital Signs Temperature 98.1 F 07/24/24 09:05 Pulse Rate 75 07/24/24 09:05 Respiratory Rate 17 07/24/24 09:05 Blood Pressure 130/81 07/24/24 09:05 Pulse Oximetry 98 07/24/24 09:05 Oxygen Delivery Method Room Air 07/24/24 09:05 <Shaheed Leija MD - Last Filed: 07/24/24 19:42> Initial Vital Signs Initial Vital Signs: Vital Signs Temperature 98.1 F 07/24/24 09:05 Pulse Rate 75 07/24/24 09:05 Respiratory Rate 17 07/24/24 09:05 Blood Pressure 130/81 07/24/24 09:05 Pulse Oximetry 98 07/24/24 09:05 Oxygen Delivery Method Room Air 07/24/24 09:05 Course <Daryl Nunez PA-C - Last Filed: 07/24/24 11:53> Orders Ordered: Discontinued Medications Acetaminophen (Acetaminophen 325 Mg Tablet) 975 mg PO NOW ONE Stop: 07/24/24 11:30 Last Admin: 07/24/24 11:35 Dose: 975 mg Documented By: MEL Vital Signs Vital signs: Vital Signs - 8 hr 07/24/24 11:52 Pulse Rate 67 Respiratory Rate 17 Blood Pressure 136/91 H Pulse Oximetry 99 Oxygen Delivery Method Room Air <Shaheed Leija MD - Last Filed: 07/24/24 19:42> Orders Ordered: Discontinued Medications Acetaminophen (Acetaminophen 325 Mg Tablet) 975 mg PO NOW ONE Stop: 07/24/24 11:30 Last Admin: 07/24/24 11:35 Dose: 975 mg Documented By: MEL Vital Signs Vital signs: Vital Signs - 8 hr 07/24/24 11:52 Pulse Rate 67 Respiratory Rate 17 Blood Pressure 136/91 H Pulse Oximetry 99 Oxygen Delivery Method Room Air MDM - Extremity Injury (Upper) <Daryl Nunez PA-C - Last Filed: 07/24/24 11:53> MDM Narrative Medical decision making narrative: 54-year-old female presents to the ED with right sided wrist pain status post a mechanical fall sustained last night. Concern for fracture/dislocation versus musculoskeletal sprain/strain versus other. X-ray was obtained which showed no acute findings. Patient's symptoms most consistent with a musculoskeletal sprain/strain of the right wrist. Patient declined ibuprofen or ketorolac, states that it aggravated her GERD. Patient was given a dose of Tylenol for pain control. Recommend icing for the 1st 24 hours followed by heat. Patient was fitted in a wrist brace and sling for comfort. Recommend follow-up with PCP. ED return precautions discussed with patient. Patient verbalized understanding. Medical records reviewed: Yes Discharge Plan Departure Patient Disposition: Home Clinical Impression: Sprain and strain of wrist Instructions: DI for Wrist Sprain Activity Restrictions/Additional Instructions: Were evaluated in the ED today for a right wrist injury. Your x-ray was normal. Your symptoms are consistent with a sprain/strain of the wrist from the fall. You were given a dose of Tylenol in the ED. You may continue to take 1000 mg of Tylenol every 8 hours for pain. You may apply ice for the 1st 24 hours, followed by heat. You have been fitted with a wrist brace and a sling for comfort as you heal. Please follow-up with your PCP as soon as possible. Return to the ED if you have worsening symptoms, numbness, tingling, weakness. Prescriptions: No Action albuterol sulfate 2.5 mg /3 mL (0.083 %) solution for nebulization 2.5 mg inhalation Q3H PRN (Reason: shortness of breath or wheezing) Qty: 90 0RF (DME) Space Chamber Spacer See Rx Instructions .Route Qty: 1 0RF Rx Instructions: As directed diazepam [Valium] 5 mg tablet 5 mg PO Q12HR PRN (Reason: muscle spasm) Qty: 10 0RF ibuprofen 600 mg tablet 600 mg PO Q6H PRN (Reason: pain) Qty: 30 0RF cyclobenzaprine 5 mg tablet 5 mg PO TID PRN (Reason: muscle spasm) Qty: 10 0RF Referrals: Izzy Jansen ND [Primary Care Provider] - Stand Alone Forms: Patient Portal/API ED Sign-out <Shaheed Leija MD - Last Filed: 07/24/24 19:42> Cosign ED Attending Cossusannaature Attestation: I was immediately available in the department for consultation. This documentation has been reviewed and I agree with assessment and plan. Supervised by Shaheed Leija MD
[2024-07-24 11:52] VITALS: BP 136/91; PULSE 67; RESP 17; O2SAT 99
== END 2024-07-24 11:52 | disposition home or self-care (01) ==
PROVIDERS: Emergency Provider Student in an Organized Health Care Education/Training Program; PCP Naturopath
DX: S63.501A Unspecified sprain of right wrist, initial encounter (principal); W10.9XXA Fall (on) (from) unspecified stairs and steps, initial encounter
CPT/HCPCS: 73110; 99283

== ENCOUNTER 2024-08-31 09:54 | Emergency (ER) | payer OTHER, MEDICAID, SELFPAY ==
[2024-08-31 10:01] VITALS: BP 133/74; PULSE 85; RESP 16; TEMP 36.6; O2SAT 100; BMI 37.5
--- NOTE | 2024-08-31 10:14 | ED.GENADULT ---
HPI - General Adult General Chief complaint: Urogenital-Female Stated complaint: lower back pain R side Time Seen by Provider: 08/31/24 10:09 Source: patient Mode of arrival: Ambulatory History of Present Illness HPI narrative: Patient is a 54-year-old female who is here for evaluation of right-sided lower back discomfort. She stated that her symptoms started yesterday. She woke up with the symptoms. Had been persistent. Has not taken anything for her symptoms prior to arrival. She has had symptoms like this in the past. She states that it was a little over a month ago. She states that it turned out to be a ?bacterial infection? in her urine. She was having some itching with urination. No fevers. No vomiting. Has had some diarrhea recently. The pain does not radiate. No skin changes. Related Data Previous Rx's Medication Instructions Recorded albuterol sulfate 2.5 mg/3 mL 2.5 mg (3 mL) inhalation Q3H PRN 10/13/22 (0.083 %) solution for nebulization shortness of breath or wheezing #90 mL inhalational spacing device (Space #1 ea 10/13/22 Chamber) diazepam 5 mg tablet (Valium) 5 mg PO Q12HR PRN muscle spasm #10 03/19/23 tabs cyclobenzaprine 5 mg tablet 5 mg PO TID PRN muscle spasm #10 01/04/24 tabs ibuprofen 600 mg tablet 600 mg PO Q6H PRN pain #30 tabs 01/04/24 Allergies Allergy/AdvReac Type Severity Reaction Status Date / Time No Known Drug Allergies Allergy Verified 08/31/24 10:03 Review of Systems Review of Systems ROS Unobtainable: All systems reviewed & are unremarkable except as noted in HPI and below Patient History Social History Smoking Status: Never smoker Smoking Status: Never smoker alcohol intake frequency: holidays/special occasions only Substance Use Type: does not use Exam Initial Vital Signs Initial Vital Signs: Vital Signs Temperature 97.9 F 08/31/24 10:01 Pulse Rate 85 08/31/24 10:01 Respiratory Rate 16 08/31/24 10:01 Blood Pressure 133/74 08/31/24 10:01 Pulse Oximetry 100 08/31/24 10:01 Oxygen Delivery Method Room Air 08/31/24 10:01 Const General: cooperative, comfortable and No ill appearing GI Inspection: normal to inspection and non-distended Back/Spine/Pelvis Thoracic/Lumbar Spine: paraspinal tenderness (Right-sided lumbar paraspinal) and No lumbar spinal tenderness Skin General: no rashes or lesions noted Neuro General: patient alert and patient awake Extrem General: normal to inspection and capillary refill normal Course Orders Ordered: ED Orders 08/31/24 10:14 Urine Culture Stat Vital Signs Vital signs: Vital Signs - 8 hr 08/31/24 10:01 Temperature 97.9 F Pulse Rate 85 Respiratory Rate 16 Blood Pressure 133/74 Pulse Oximetry 100 Oxygen Delivery Method Room Air Medical Decision Making Lab Data Lab results reviewed: Yes I reviewed the patient's lab results. Labs: Urine Dip Bedside Urine Glucose Negative Bedside Urine Bilirubin - Negative Bedside Urine Ketone - Negative Urine Specific [place] 1.005 Bedside Urine Occult Blood - Negative Bedside Urine pH 6.5 Bedside Urine Protein - Negative Bedside Urine Urobilinogen - Negative Bedside Urine Nitrite - Negative Bedside Urine Leukocytes - Negative Esterase Point of care testing: Urine Dip Bedside Urine Glucose Negative Bedside Urine Bilirubin - Negative Bedside Urine Ketone - Negative Urine Specific [place] 1.005 Bedside Urine Occult Blood - Negative Bedside Urine pH 6.5 Bedside Urine Protein - Negative Bedside Urine Urobilinogen - Negative Bedside Urine Nitrite - Negative Bedside Urine Leukocytes - Negative Esterase MDM Narrative Medical decision making narrative: No trauma. Low suspicion for fracture. No radicular symptoms. No skin changes concerning for zoster. Her symptoms are much lower than what I would expect for pyelonephritis. Her urine sample today is relatively unremarkable though she states that she has been diagnosed with a ?bacterial? infection in the past. I will obtain a urine culture today but I have a high suspicion that this is not going to grow any pathogens. Recommended anti-inflammatories. She declined the offer for Motrin here. States she has this medication at home. Will discharge patient home with return precautions. Discharge Plan Departure Patient Disposition: Home Clinical Impression: Lower back pain Instructions: DI for Low Back Pain Activity Restrictions/Additional Instructions: Continue to take all of your medications as directed. I do recommend that you continue to take the anti-inflammatories such as Motrin/ibuprofen. A urine culture was pending at the time of your discharge and we will contact you if we need to start antibiotics based on this. Contact your primary doctor for a follow-up. Prescriptions: No Action albuterol sulfate 2.5 mg /3 mL (0.083 %) solution for nebulization 2.5 mg inhalation Q3H PRN (Reason: shortness of breath or wheezing) Qty: 90 0RF (DME) Space Chamber Spacer See Rx Instructions .Route Qty: 1 0RF Rx Instructions: As directed diazepam [Valium] 5 mg tablet 5 mg PO Q12HR PRN (Reason: muscle spasm) Qty: 10 0RF ibuprofen 600 mg tablet 600 mg PO Q6H PRN (Reason: pain) Qty: 30 0RF cyclobenzaprine 5 mg tablet 5 mg PO TID PRN (Reason: muscle spasm) Qty: 10 0RF Referrals: Izzy Jansen ND [Primary Care Provider] - Stand Alone Forms: Patient Portal/API/Survey
--- NOTE | 2024-08-31 10:19 | PC.NURSE ---
Hx of kidney stones. Pt states she has needed stents in the past to have kidney stones pass. Pt states the pain came on all of a sudden approx 1-2 days ago. Pt denies N/V. R flank tender to palpation. Pt denies any vaginal discharge.
[2024-08-31 10:23] VITALS: RESP 17
== END 2024-08-31 10:24 | disposition home or self-care (01) ==
PROVIDERS: Emergency Provider Emergency Medicine; PCP Naturopath
DX: M54.50 Low back pain, unspecified (principal)
CPT/HCPCS: 81003; 87086; 99282

== ENCOUNTER → 2024-11-26 09:54 | Outpatient (CLI) | payer OTHER, SELFPAY ==
[2024-11-26 10:41] LABS: Influenza A - CEPHEID Flu A NEGATIVE (NEGATIVE); Influenza B - CEPHEID Flu B NEGATIVE (NEGATIVE); Respiratory Syncytial Virus Negative (Negative)
[2024-11-26 10:42] LABS: COVID-19 CEPHEID 4-PLEX PCR Negative (Negative)
== END ==
PROVIDERS: PCP Naturopath; Referring Provider Nurse Practitioner Family; Visit Provider Nurse Practitioner Family
DX: R52 Pain, unspecified (principal); R05.9 Cough, unspecified; R68.83 Chills (without fever); J02.9 Acute pharyngitis, unspecified
CPT/HCPCS: 87635; 87400; 87420; 0241U; 87070; 87880

== ENCOUNTER 2025-04-11 08:59 | Emergency (ER) | payer OTHER, SELFPAY ==
[2025-04-11 09:04] VITALS: BP 133/78; PULSE 75; RESP 16; TEMP 36.2; O2SAT 97; BMI 38.0
--- NOTE | 2025-04-11 09:07 | ED_ITS ---
HPI - General Adult General Chief complaint: Extremity Problem,Nontraumatic Stated complaint: Right knee pain Time Seen by Provider: 04/11/25 09:01 History of Present Illness HPI narrative: 54-year-old woman with a history of asthma, reflux, depression presents complaining of ongoing right knee pain, she had surgery on this knee approximately a year ago. Has a knee splint is placed. Finds that Tylenol and methocarbamol have not been effective in controlling her pain completely. Ib uprofen upsets her reflux. Her knee surgeon was Dr. Cramer. Her last visit with him was January 16 that was in follow up after a right shoulder arthroscopy on June 14, 2019 and a left shoulder arthroscopy on 01/06/2023. She was given a prescription for meloxicam 7.5 mg daily for pain control, referral for physical therapy was initiated. There was no discussion of the pain with the visit. Related Data Home Medications ?Medication ?Instructions ?Recorded ?Confirmed citalopram 10 mg tablet 10 mg PO DAILY 11/26/2411/17 pantoprazole 20 mg tablet,delayed 20 mg PO BID 5 11/26/24 release Previous Rx's ?Medication ?Instructions ?Recorded albuterol sulfate 2.5 mg/3 mL 2.5 mg (3 mL) inhalation Q3H PRN 10/13/22 (0.083 %) solution for nebulization shortness of breat h or wheezing #90 mL inhalational spacing device (Space #1 ea 10/13/22 Chamber) cyclobenzaprine 5 mg tablet 5 mg PO TID PRN muscle spa sm #10 01/04/24 tabs ibuprofen 600 mg tablet 600 mg PO Q6H PRN pain #30 t abs 01/04/24 Allergies Allergy/AdvReac Type Severity Reaction Status Date / Time lemon Allergy Verified 04/11/25 09:07 Review of Systems Review of Systems Narrative: Pertinent positive and negative findings as per HPI Patient History alcohol intake frequency: holidays/special occasions only Exam Initial Vital Signs Initial Vital Signs: Vital Signs Temperature 97.1 F L 04/11/25 09:04 Pulse Rate 75 04/11/25 09:04 Respiratory Rate 16 04/11/25 09:04 Blood Pressure 133/78 04/11/25 09:04 Pulse Oximetry 97 04/11/25 09:04 Oxygen Delivery Method Room Air 04/11/25 09:04 General: Alert appropriate in no acute distress Respiratory: Able to speak in full sentences, no obvious respiratory distress Skin: No obvious rashes, warm and dry Neurologic: Grossly intact no obvious asymmetries or abnormalities Psych: appropriate insight and affect, cooperative Extremity: Right knee is tender along the medial joint line, there is a mild effusion worse in the medial aspect the lateral aspect, she is tender along the medial collateral ligament. Can flex to 45? extend to 180?. Majority of decreased range of motion is secondary to effusion. She is neurovascularly intact. There is no redness or warmth to suggest septic joint Course Orders Ordered: ED Orders 04/11/25 09:24 XR knee RT 3V Stat Discontinued Medications Dexamethasone (Dexamethasone 4 Mg/Ml Vial) 8 mg INJ INTRA-OP ONE Stop: 04/11/25 09:31 Last Admin: 04/11/25 09:51 Dose: 8 mg Documented By: LILIANE Vital Signs Vital signs: Vital Signs - 8 hr 04/11/25 09:04 04/11/25 10:26 Temperature 97.1 F L Pulse Rate 75 Pulse Rate [Right Dorsalis Pedis] 78 Respiratory Rate 16 Blood Pressure 133/78 Pulse Oximetry 97 Oxygen Delivery Method Room Air Medical Decision Making MDM Narrative Medical decision making narrative: CC: Right knee pain Complicating co-morbidities: Multiple orthopedic injuries. She has seen Dr. Cramer at [facility]. It appears that the right knee issues or in 2017, since then she has had both left and right shoulder surgeries Data collected from: patient Social determinants of health that may influence the patients condition: Patient is confined to using a bus for transportation and would like to consolidate care in the [facility] with all prior care being with [facility] Medical records reviewed: Orthopedic notes reviewed 2018 through 2024 notes are all discussing shoulder issues. Note from February 13, 2019 refers to surgery for tear of the medial meniscus of the right knee, complex tear of the right knee. She was seen again for knee pain was felt to be pes anserine bursitis. Noted responded well to injection therapy. Injections repeated that time, light duty for work and referral to physical therapy Procedure note from 01/10/2029 indicated an anteromedial approach to the knee with 8 mg of dexamethasone and 0.5 mg of bupivacaine Differential considered: Arthritis pain, effusion, ligamentous injury, doubt bony injury given the lack of trauma, no significant warmth or redness to suggest septic joint or infectious arthritis Exam documented above, pertinent findings include: Right knee has mild effusion. She is able to flex to approximately 45? and extend to 180?. She is neurovascularly intact. She is quite tender over the medial compartment of the knee and the medial collateral ligament. Given constraints of pain and swelling a ligamentous exam does not suggest acute instability Imaging studies independently reviewed: X-ray shows no acute bony abnormalities Treatments/procedure: Verbal consent is obtained for steroid injection into the medial aspect of her right knee. This has been effective in 2019 Anteromedial approach is chosen, areas cleaned thoroughly with alcohol and Skin is allowed to dry 0.2 cc of 1% lidocaine in a insulin syringes use to anesthetize the insertion site Using a 20 gauge needle, the medial aspect of the knee, most significant area of effusion was entered. Gentle aspiration did not return any synovial fluid. Total of 8 mg, 2 cc of dexamethasone and 1 cc of 1% lidocaine was injected into the medial joint space with moderate relief of pain. Reviewed anticipated course including improve pain immediately from the lidocaine, increased fullness in the knee secondary to the 3 cc of fluid injected and steroid benefits truly beginning to be noticed by tomorrow Patient tolerated the procedure well, there were no complications Discussion: 54-year-old woman with chronic arthritis pain. Quite a bit of walking as she does not have a car increased swelling and tenderness to the right knee, she has had knee surgery to that area as well as steroid injections that have been helpful approximately 6 years ago. No evidence of infection. With shared decision-making we opted to do a dexamethasone injection similar to injection that was helpful or up in 2019 through the orthopedist office. Asked her to continue wearing the splint she currently has. She is given information to call to try and establish a primary care physician in [place] and of the [facility] orthopedics to see if she can schedule an appointment for knee pain without primary care referral. She would like to transfer care from [facility] to [place] due to transportation issues. Reviewed reasons to return to the emergency department in including redness, swelling or drainage from the injection site. Questions are answered she is safe for discharge Discharge Plan Departure Patient Disposition: Home Clinical Impression: Effusion of knee joint, left, Arthritis of knee Acute knee pain Qualifiers: Laterality: right Qualified Code(s): M25.561 - Pain in right knee Instructions: DI for Knee Effusion Activity Restrictions/Additional Instructions: Thank you for coming in, I am sorry that you are continuing to have so much difficulty with this knee. Knowing that you have had previous surgeries with meniscal abnormalities, you do have arthritis and you do quite a bit of walking as you do not have access to a car the increased swelling pain and effusion in your knee is likely a combination of all of these factors There was no obvious fractures on x-ray. No sign of infection or gout. In looking through old records from Dr. Cramer, in 2019 he did a steroid injection seemed to be helpful. Same dosing and technique were repeated today. Hopefully it will be as beneficial Using the knee immobilizer to help with stability and pain is appropriate. Icing the knee when you are able to do so we will help To transfer care to [place] doctors it would be best to have a primary care physician. You can call [phone], explain that you are looking for a primary care physician and they can point you to open practice is that do accept her insurance If you do not need referrals prior to seeing specialty Care, you can call [place] [facility] directly, the phone number is [phone] for consultation regarding your acute exacerbation of chronic right knee pain. If you find that you are getting worse or develop any new symptoms, please feel free to return to the emergency department for further evaluation. Prescriptions: No Action citalopram 10 mg tablet 10 mg PO DAILY pantoprazole 20 mg tablet,delayed release (DR/EC) 20 mg PO BID albuterol sulfate 2.5 mg /3 mL (0.083 %) solution for nebulization 2.5 mg inhalation Q3H PRN (Reason: shortness of breath or wheezing) Qty: 90 0RF (DME) Space Chamber Spacer See Rx Instructions .Route Qty: 1 0RF Rx Instructions: As directed ibuprofen 600 mg tablet 600 mg PO Q6H PRN (Reason: pain) Qty: 30 0RF cyclobenzaprine 5 mg tablet 5 mg PO TID PRN (Reason: muscle spasm) Qty: 10 0RF Referrals: Izzy Jansen ND [Primary Care Provider, Naturopathy] Stand Alone Forms: Patient Portal/API
--- NOTE | 2025-04-11 09:24 | DI.RAD.S_ITS ---
PROCEDURE: XR KNEE RT 3V INDICATIONS: knee pain TECHNIQUE: 3 views of the knee were acquired. COMPARISON: None. FINDINGS: Bones: No fractures or dislocations. No suspicious bony lesions. Soft tissues: No joint effusion. No suspicious soft tissue calcifications. IMPRESSION: No acute bony abnormality or significant effusion. Dictated by: Alfredo Tomlinson M.D. on 04/11/2025 at 10:10 Approved by: Alfredo Tomlinson M.D. on 04/11/2025 at 10:10
[2025-04-11] MEDS: DEXAMETHASONE 4 MG/ML VIAL 8 MG INJ (09:51)
[2025-04-11 10:26] VITALS: PULSE 78
[2025-04-11 11:50] VITALS: BP 136/76; PULSE 74; RESP 16; O2SAT 97
== END 2025-04-11 11:50 | disposition home or self-care (01) ==
PROVIDERS: Emergency Provider Emergency Medicine; PCP Naturopath
DX: M25.461 Effusion, right knee (principal); M17.11 Unilateral primary osteoarthritis, right knee
CPT/HCPCS: 20610; 73562; 99282; 99284; J1100

== ENCOUNTER → 2025-05-14 18:13 | Outpatient (CLI) | payer OTHER, SELFPAY ==
--- NOTE | 2025-05-14 18:14 | DI.MRI.S_ITS ---
PROCEDURE: MR KNEE RT WO CON INDICATIONS: look for medial meniscus tear versus medial compartment OA TECHNIQUE: Noncontrast sagittal PD fast spin echo and T2 fast spin echo with fat saturation, sagittal 3-D FLASH with fat saturation; coronal T1 spin echo and PD fast spin echo with fat saturation, and axial PD fast spin echo with fat saturation through the knee. COMPARISON: [facility], CR, XR KNEE RT 3V, 04/11/2025, 9:26. FINDINGS: Image quality: Degraded by body habitus Menisci: Vertically oriented linear high T2 signal intensity traverses the peripheral 3rd of the medial meniscal body, demonstrating inferior articular surface extension, indicating vertical tearing. Amorphous high signal intensity within the free edge of medial meniscal body and anterior horn, demonstrating superior and inferior articular surface extension, indicating degenerative tearing lateral meniscus is Cruciate ligaments: The anterior and posterior cruciate ligaments appear intact. Medial structures: The medial collateral ligament appears intact. Visualized portions of the pes anserinus tendons appear normal. No abnormal bursal fluid. Lateral structures: The lateral collateral ligament, long and short heads of the biceps femoris tendon appear intact. The popliteus tendon appears normal. Iliotibial band appears normal. Anterior structures: The quadriceps and patellar tendons appear intact. Patellar alignment is normal. No femoral trochlear dysplasia or ventral trochlear prominence. No edema in the infrapatellar fat pad. Bones and cartilage: Small region of subchondral T2 and low T1 signal intensity within the posterior weight-bearing aspect of the medial femoral condyle with moderate underlying ill-defined STIR signal elevation, consistent with osteochondral injury. Mild articular cartilage loss diffusely overlies the weight-bearing aspects of the medial femoral condyle and medial tibial plateau. Articular cartilage fibrillation overlies the medial and lateral patellar facets. Focal region of moderate articular cartilage loss overlies the patellar apex. Joint space: There is moderate knee joint effusion, a small ganglion cyst along popliteus, and a trace Ramirez's cyst. Normal appearing synovial plicae are incidentally noted. IMPRESSION: 1. Medial meniscal tearing as described above. 2. Osteochondral injury within medial femoral condyle with underlying reactive marrow edema. 3. Knee joint effusion and Ramirez's cyst. 4. Tricompartmental osteoarthritis with associated articular cartilage loss. Dictated by: Brittney Augustine M.D. on 05/15/2025 at 12:01 Approved by: Brittney Augustine M.D. on 05/15/2025 at 12:04
== END ==
LOC: MRI 18:14
PROVIDERS: PCP Naturopath; Referring Provider Orthopaedic Surgery; Visit Provider Orthopaedic Surgery
DX: S83.241A Other tear of medial meniscus, current injury, right knee, initial encounter (principal); M17.11 Unilateral primary osteoarthritis, right knee; M25.461 Effusion, right knee; M67.461 Ganglion, right knee; M25.561 Pain in right knee; G89.29 Other chronic pain
CPT/HCPCS: 73721